=== PATIENT | male | born 1990 | race Caucasian/White ===

== ENCOUNTER 2017-08-14 06:46 | Emergency (ER) | payer SELFPAY ==
[2017-08-14 06:48] VITALS: TEMP 98.8
[2017-08-14 08:23] VITALS: BP 132/65; PULSE 85; RESP 18; O2SAT 98
[2017-08-14] MEDS ORDERED: PRED-503 PO (08:29)
[2017-08-14] MEDS ORDERED: RESP: ALBUTEROL 2.5 MG/IPRATROPIUM 0.5 MG NEB (SCH) INH ONE (08:30)
[2017-08-14] MEDS ORDERED: ALBUTEROL SULFATE 90 MCG/ACT HFA 8 GM INHALER INH PRN (08:30)
[2017-08-14] MEDS ORDERED: AZIT500T2 PO (08:30)
[2017-08-14] MEDS ORDERED: predniSONE 20 MG TAB PO ONE (08:30)
--- NOTE | 2017-08-14 08:30 | PD ---
HPI Chief Complaint: Cold / Flu Symptoms Time Seen by Provider: 08:19 Travel History International Travel<30 days: No Contact w/Intl Traveler<30days: No Traveled to known affect area: No History of Present Illness HPI 27-year-old male, with history of asthma, presents to the emergency Department with complaint of cough, nasal congestion, chest congestion, chest tightness, shortness of breath with worsening of symptoms 1 week. Patient is homeless and was brought in via EMS. Was seen at [facility] yesterday and said he had a chest x-ray done which he was told was okay. He said he was discharged with [facility] senior. Unknown fevers. Denies abdominal pain, vomiting. Denies sore throat, ear pain. Reports wheezing. Denies chest pain. Has been taking Delsym for symptom management. Symptoms are mild in severity. Symptoms are aggravated with walking. No known relieving factors. No known allergies. No primary care provider. History of asthma. Has not medical complaints. No other modifying factors or associated signs and symptoms. PFSH Past Medical History ADHD: Yes Asthma: Yes Bipolar Disorder: Yes Diminished Hearing: No Immunizations Current: Yes Influenza Vaccination: No Past Surgical History Surgical History: No Previous Surgery Social History Alcohol Use: Yes (OCCASIONALLY) Tobacco Use: Yes (1 ppd) Substance Use: Yes ( herion iv, occ. cocaine; DENIES ON THIS VISIT) Allergies-Medications (Allergen,Severity, Reaction): Coded Allergies: No Known Allergies (Verified Adverse Reaction, Unknown, 08/14/17) Reported Meds & Prescriptions Reported Meds & Active Scripts Active Azithromycin 500 Mg Tab 500 Mg PO DAILY Deltasone (Prednisone) 20 Mg Tab 20 Mg PO BID Review of Systems Except as stated in HPI: all other systems reviewed are Neg Physical Exam Narrative GENERAL: Well-nourished, well-developed male patient, in no acute distress; afebrile, nontoxic-appearing SKIN: Warm and dry. HEAD: Atraumatic. Normocephalic. EYES: Pupils equal and round. No scleral icterus. No injection or drainage. ENT: Mucosa pink and moist. No erythema or exudates. No uvular edema. No uvular , palatal, or tonsillar deviation. Airway patent. Nares without nasal blood, purulent drainage or septal hematoma. EARS: Bilateral pinnae and external canals appear within normal limits. Bilateral tympanic membranes without erythema, dullness or perforation. NECK: Trachea midline. No lymphadenopathy. CARDIOVASCULAR: Regular rate and rhythm. No murmur appreciated. RESPIRATORY: No accessory muscle use. Lungs with Wheezing throughout to auscultation. Breath sounds equal bilaterally. No retractions or tachypnea. No Audible wheezing noted. GASTROINTESTINAL: Flat. MUSCULOSKELETAL: No obvious deformities. No clubbing. No cyanosis. No edema. NEUROLOGICAL: Awake and alert. Oriented 3. No obvious cranial nerve deficits. Motor grossly within normal limits. Normal speech. Moves all extremities. 5/5 strength to all extremities. PSYCHIATRIC: Appropriate mood and affect; insight and judgment normal. Data Data Last Documented VS Vital Signs Date Time Temp Pulse Resp B/P (MAP) Pulse Ox O2 Delivery O2 Flow Rate FiO2 08/14/17 08:23 85 18 132/65 (87) 98 08/14/17 06:48 98.8 Orders Orders Influenzae A/B Antigen (08/14/17 07:03) Prednisone (Deltasone) (08/14/17 08:30) Albuterol-Ipratropium Neb (Duoneb Neb) (08/14/17 08:30) Albuterol Hfa Inh (Proair Hfa Inh) (08/14/17 08:30) MDM Medical Decision Making Medical Screen Exam Complete: Yes Emergency Medical Condition: Yes Medical Record Reviewed: Yes Differential Diagnosis Acute bronchitis, upper respiratory infection, influenza, pneumonia Narrative Course 27-year-old male physical examination consistent with asthma exacerbation and upper respiratory infection. Patient has been sick for approximately one week. Lungs with wheezing throughout. Patient is in no acute distress without retractions or tachypnea. Oxygen saturation is 98% on room air. He states he was seen at [facility] yesterday and had a chest x-ray which was normal, per the patient. DuoNeb and Deltasone ordered. 0847: On reexamination lungs are clear and equal throughout. The patient reports improvement in symptoms. He denies chest tightness or shortness of breath. Patient is homeless. I will provide the patient with an albuterol inhaler for home. Prescribed azithromycin, Deltasone for home. Instructed patient to follow up with primary care provider. Patient verbalizes understanding and agreement with treatment plan. Patient is medically cleared and stable for discharge. Discussed reasons to return to the emergency department. Patient agrees with treatment plan. The patients vital signs are stable and the patient is stable for outpatient follow-up and treatment. Patient discharged home, stable and in no acute distress. Diagnosis Primary Impression: URI (upper respiratory infection) Qualified Codes: J06.9 - Acute upper respiratory infection, unspecified Additional Impression: Asthma exacerbation Qualified Codes: J45.901 - Unspecified asthma with (acute) exacerbation Referrals: [facility] Primary Care Physician Patient Instructions: Acute Bronchitis (ED), Asthma (ED), General Instructions , Upper Respiratory Infection (ED) Additional Instructions: Use Albuterol inhaler as prescribed Take oral steroids as prescribed and complete full course Use Tessalon Perles as prescribed to decrease coughing spasms Dvke-uzv-butrocz decongestants or antihistamines as directed and as needed for symptom management Your cough can last 4-6 weeks Drink plenty of fluids to prevent dehydration Use hot air humidifier to decrease cough exacerbation Turn off ceiling fans and sleep with head of bed elevated Avoid triggers such as second hand smoke, dust, known allergens Follow-up with your primary care provider Return to the emergency department immediately with worsening of symptoms Med/Other Pt SpecificInfo: Prescription(s) given Scripts Azithromycin (Azithromycin) 500 Mg Tab 500 MG PO DAILY for Infection, #5 TAB 0 Refills Prov: Elsa Zuñiga 08/14/17 Prednisone (Deltasone) 20 Mg Tab 20 MG PO BID, #60 TAB 0 Refills Prov: Elsa Zuñiga 08/14/17 Disposition: 01 DISCHARGE HOME Condition: Stable Elsa Zuñiga Aug 14, 2017 08:30
[2017-08-14 09:10] VITALS: BP 130/65
== END 2017-08-14 09:37 | disposition home or self-care (01) ==
LOC: NEPD 06:46
DX: J06.9 Acute upper respiratory infection, unspecified (principal); J45.901 Unspecified asthma with (acute) exacerbation; F90.9 Attention-deficit hyperactivity disorder, unspecified type; F31.9 Bipolar disorder, unspecified; F17.200 Nicotine dependence, unspecified, uncomplicated; Z59.0 Homelessness
CPT/HCPCS: 87804; 94664; 99284; J7512

== ENCOUNTER 2017-08-26 18:10 | Inpatient (IN) | payer SELFPAY ==
[~2017-08-26] VITALS: Ht 182.9 cm; Wt 86.0 kg
[~2017-08-26 18:10] MED LIST: AZIT500T2 PO; PRED-503 PO
[2017-08-26 18:14] VITALS: BP 162/84; PULSE 92; RESP 24; TEMP 98.4; O2SAT 99
[2017-08-26] MEDS ORDERED: SODIUM CHLOR 0.9% 1000 ML INJ 1,000 ML IV SCH (20:01)
[2017-08-26 20:09] VITALS: RESP 20; O2SAT 100
[2017-08-26] MEDS ORDERED: SODIUM CHLORIDE 0.9% FLUSH 10 ML FLUSH IV FLUSH PRN ×2 (20:15→23:30)
[2017-08-26] MEDS ORDERED: KETOROLAC TROMETHAMINE 30 MG/ML (IVP) VIAL IVP ONE (20:15)
[2017-08-26 20:43] LABS: AUTOMATED NEUTROPHIL # 20.5 TH/MM3 (1.8-7.7); BASOPHIL % 0.2 % (0.0-2.0); EOSINOPHIL # 0.1 TH/MM3 (0-0.4); EOSINOPHIL % 0.3 % (0.0-4.0); HEMOGLOBIN 13.6 GM/DL (13.0-17.0); LYMPH % 2.3 % (9.0-44.0); LYMPHOCYTE # 0.5 TH/MM3 (1.0-4.8); MEAN CELL VOLUME 83.1 FL (80.0-100.0); MEAN CORPUSCULAR HEMOGLOBIN 28.2 PG (27.0-34.0); MEAN CORPUSCULAR HGB CONC 33.9 % (32.0-36.0); MEAN PLATELET VOLUME 8.4 FL (7.0-11.0); MONO % 0.5 % (0.0-8.0); MONOCYTE # 0.1 TH/MM3 (0-0.9); NEUT % 96.7 % (16.0-70.0); PLATELET COUNT 261 TH/MM3 (150-450); RED BLOOD COUNT 4.82 MIL/MM3 (4.50-5.90); RED CELL DISTRIBUTION WIDTH 13.3 % (11.6-17.2); WHITE BLOOD COUNT 21.2 TH/MM3 (4.0-11.0)
[2017-08-26 20:53] LABS: ALBUMIN 3.2 GM/DL (3.4-5.0); AST (GOT) 277 U/L (15-37); BICARBONATE 26.1 MEQ/L (21.0-32.0); BLOOD UREA NITROGEN 12 MG/DL (7-18); CALCIUM 8.6 MG/DL (8.5-10.1); CHLORIDE 101 MEQ/L (98-107); GLOMERULAR FILTRATION RATE 102 ML/MIN (>89); GLUCOSE,RANDOM 93 MG/DL (74-106); LIPASE 78 U/L (73-393); SODIUM (NA) 136 MEQ/L (136-145)
[2017-08-26 20:54] LABS: ALT (GPT) 163 U/L (12-78)
[2017-08-26 20:57] LABS: ALKALINE PHOSPHATASE 133 U/L (45-117); TOTAL BILIRUBIN ADULT 0.7 MG/DL (0.2-1.0); TOTAL PROTEIN 7.3 GM/DL (6.4-8.2)
[2017-08-26] MEDS ORDERED: IOHEXOL 350 MG/ML 10 ML VIAL (for RAD DIAG) IVCONTRAST ONE (21:36)
--- NOTE | 2017-08-26 21:57 | RADRPT ---
EXAM DATE/TIME: 08/26/2017 21:34 [place] COMPARISON: No previous studies available for comparison. INDICATIONS : Bilateral flank pain. IV CONTRAST: 100 cc Omnipaque 350 (iohexol) IV ORAL CONTRAST: No oral contrast ingested. RADIATION DOSE: 6.64 CTDIvol (mGy) MEDICAL HISTORY : Substance abuse. SURGICAL HISTORY : None. ENCOUNTER: Initial ACUITY: 1 day PAIN SCALE: 7/10 LOCATION: Bilateral flank TECHNIQUE: Volumetric scanning of the abdomen and pelvis was performed. Using automated exposure control and ad justment of the mA and/or kV according to patient size, radiation dose was kept as low as reasonably achievable to obtain optimal diagnostic quality images. DICOM format image data is available electro nically for review and comparison. FINDINGS: LOWER LUNGS: Mild patchy infiltrate in the visualized right middle and lower lobes LIVER: Enlarged at 24 cm craniocaudal. No focal hepatic lesion. There is no dilation of the biliary tree. S ome mild periportal edema is present, nonspecific but often seen in the setting of vigorous intraveno us hydration; underlying hepatocellular disease also in the differential. There is small pericholecys tic fluid, series 2 image 35, possibly on the same basis. I don't clearly see gallbladder wall thicke meche or inflammatory change. No perceptible stones. SPLEEN: Upper limits of normal size, 9.2 x 14.2 x 12.1 cm PANCREAS: Within normal limits. KIDNEYS: Normal in size and shape. There is no mass, stone or hydronephrosis. ADRENAL GLANDS: Within normal limits. VASCULAR: There is no aortic aneurysm. BOWEL/MESENTERY: The stomach, small bowel, and colon demonstrate no acute abnormality. There is no free intraperitone al air or fluid. Normal appendix. ABDOMINAL WALL: Small amount of fat herniated at the umbilicus. No bowel herniation. RETROPERITONEUM: There is no lymphadenopathy. BLADDER: No wall thickening or mass. REPRODUCTIVE: Within normal limits. INGUINAL: There is no lymphadenopathy or hernia. MUSCULOSKELETAL: Within normal limits for patient age. CONCLUSION: 1. No evidence of bilateral Wednesday as are other acute renal abnormality. 2. Hepatomegaly with periportal edema and also trace fluid around the gallbladder. Please see above. No perceptible inflammatory changes. 3. Upper limits of normal to mildly enlarged spleen, nonspecific. 4. Apparent patchy pneumonia in the visualized right base. 5. Small fat containing umbilical hernia. Yimi Harris MD on August 26, 2017 at 21:48 Board Certified Radiologist. This report was verified electronically.
[2017-08-26] MEDS ORDERED: VANCOMYCIN INJ 1,250 MG in SODIUM CHLOR 0.9% 250 ML INJ 250 ML IV ONE (22:15)
[2017-08-26] MEDS ORDERED: PIPERACIL-TAZO 4.5 GM PREMIX 100 ML IV ONE (22:15)
[2017-08-26] MEDS ORDERED: SODIUM CHLOR 0.9% 1000 ML INJ 1,000 ML IV ONE (22:47)
[2017-08-26] MEDS ORDERED: SODIUM CHLOR 0.9% 1000 ML INJ 800 ML IV ONE (22:47)
--- NOTE | 2017-08-26 23:06 | PD ---
HPI Chief Complaint: Headache Time Seen by Provider: 20:01 Travel History International Travel<30 days: No Contact w/Intl Traveler<30days: No Traveled to known affect area: No History of Present Illness HPI The patient is 27 years old and arrives to the ER with a complaint low back pain. Duration about 2 hours. He is currently an IV drug abuser, heroin. He states the pain is severe. He believes his "kidneys are exploding." He denies fever. The pain is constant. It's worse with palpation/percussion of the low back. PFSH Past Medical History ADHD: Yes Asthma: Yes Bipolar Disorder: Yes Diminished Hearing: No Immunizations Current: Yes Past Surgical History Surgical History: No Previous Surgery Social History Alcohol Use: Yes (OCCASIONALLY) Tobacco Use: Yes (1 ppd) Substance Use: Yes ( herion iv, occ. cocaine; DENIES ON THIS VISIT) Allergies-Medications (Allergen,Severity, Reaction): Coded Allergies: No Known Allergies (Verified Adverse Reaction, Unknown, 08/26/17) Reported Meds & Prescriptions Reported Meds & Active Scripts Active Azithromycin 500 Mg Tab 500 Mg PO DAILY Deltasone (Prednisone) 20 Mg Tab 20 Mg PO BID Review of Systems Except as stated in HPI: all other systems reviewed are Neg Physical Exam Narrative GENERAL: 27-year-old male well-nourished well-developed mild to moderate distress SKIN: Warm and dry. HEAD: Atraumatic. Normocephalic. EYES: Pupils equal and round. No scleral icterus. No injection or drainage. ENT: No nasal bleeding or discharge. Mucous membranes pink and moist. NECK: Trachea midline. No JVD. CARDIOVASCULAR: Regular rate and rhythm. RESPIRATORY: No accessory muscle use. Clear to auscultation. Breath sounds equal bilaterally. GASTROINTESTINAL: Soft. Tenderness to percussion lower back. No abdominal TTP. MUSCULOSKELETAL: Extremities without clubbing, cyanosis, or edema. No obvious deformities. NEUROLOGICAL: Awake and alert. No obvious cranial nerve deficits. Motor grossly within normal limits. Five out of 5 muscle strength in the arms and legs. Normal speech. PSYCHIATRIC: Appropriate mood and affect; insight and judgment normal. Data Data Last Documented VS Vital Signs Date Time Temp Pulse Resp B/P (MAP) Pulse Ox O2 Delivery O2 Flow Rate FiO2 08/26/17 20:09 20 100 Room Air 08/26/17 18:14 98.4 92 VS reviewed Orders Orders Complete Blood Count With Diff (08/26/17 20:01) Comprehensive Metabolic Panel (08/26/17 20:01) Lipase (08/26/17 20:01) Urinalysis - C+S If Indicated (08/26/17 20:01) Ct Abd/Pel W Iv Contrast(Rout) (08/26/17 20:01) Iv Access Insert/Monitor (08/26/17 20:01) Ecg Monitoring (08/26/17 20:01) Oximetry (08/26/17 20:01) Sodium Chlor 0.9% 1000 Ml Inj (Ns 1000 M (08/26/17 20:01) Sodium Chloride 0.9% Flush (Ns Flush) (08/26/17 20:15) Electrocardiogram (08/26/17 20:01) Ketorolac Inj (Toradol Inj) (08/26/17 20:15) Iohexol 350 Inj (Omnipaque 350 Inj) (08/26/17 21:36) Piperacil-Tazo 4.5 Gm Premix (Zosyn 4.5 (08/26/17 22:15) Vancomycin Inj (Vancomycin Inj) (08/26/17 22:15) Blood Culture (08/26/17 22:04) Admit Order (Ed Use Only) (08/26/17 ) Diet Counselor / Telemetry MARIEL.Q8H (08/26/17 22:47) Vital Signs (Adult) Q4H (08/26/17 22:47) Diet Npo (08/27/17 Breakfast) Activity Bed Rest (08/26/17 22:47) Lactic Acid Sepsis Protocol (08/26/17 22:47) Sodium Chlor 0.9% 1000 Ml Inj (Ns 1000 M (08/26/17 22:47) Sodium Chlor 0.9% 1000 Ml Inj (Ns 1000 M (08/26/17 22:47) Labs Laboratory Tests Test 08/26/17 20:20 White Blood Count 21.2 TH/MM3 Red Blood Count 4.82 MIL/MM3 Hemoglobin 13.6 GM/DL Hematocrit 40.0 % Mean Corpuscular Volume 83.1 FL Mean Corpuscular Hemoglobin 28.2 PG Mean Corpuscular Hemoglobin Concent 33.9 % Red Cell Distribution Width 13.3 % Platelet Count 261 TH/MM3 Mean Platelet Volume 8.4 FL Neutrophils (%) (Auto) 96.7 % Lymphocytes (%) (Auto) 2.3 % Monocytes (%) (Auto) 0.5 % Eosinophils (%) (Auto) 0.3 % Basophils (%) (Auto) 0.2 % Neutrophils # (Auto) 20.5 TH/MM3 Lymphocytes # (Auto) 0.5 TH/MM3 Monocytes # (Auto) 0.1 TH/MM3 Eosinophils # (Auto) 0.1 TH/MM3 Basophils # (Auto) 0.0 TH/MM3 CBC Comment DIFF FINAL Differential Comment Blood Urea Nitrogen 12 MG/DL Creatinine 0.90 MG/DL Random Glucose 93 MG/DL Total Protein 7.3 GM/DL Albumin 3.2 GM/DL Calcium Level 8.6 MG/DL Alkaline Phosphatase 133 U/L Aspartate Amino Transf (AST/SGOT) 277 U/L Alanine Aminotransferase (ALT/SGPT) 163 U/L Total Bilirubin 0.7 MG/DL Sodium Level 136 MEQ/L Potassium Level 3.3 MEQ/L Chloride Level 101 MEQ/L Carbon Dioxide Level 26.1 MEQ/L Anion Gap 9 MEQ/L Estimat Glomerular Filtration Rate 102 ML/MIN Lipase 78 U/L [facility] Medical Decision Making Medical Screen Exam Complete: Yes Emergency Medical Condition: Yes Medical Record Reviewed: Yes Differential Diagnosis Endocarditis, septic emboli, pyelonephritis Narrative Course CBC & BMP Diagram 08/26/17 20:20 Total Protein 7.3, Albumin 3.2 L, Calcium Level 8.6, Alkaline Phosphatase 133 H , Aspartate Amino Transf (AST/SGOT) 277 H, Alanine Aminotransferase (ALT/SGPT) 163 H, Total Bilirubin 0.7 Lipase is normal Last Impressions Abdomen/Pelvis CT 08/26/172000 Signed Impressions: Service Date/Time: August 21:34 - CONCLUSION: 1. No evidence of bilateral Wednesday as are other acute renal abnormality. 2. Hepatomegaly with periportal edema and also trace fluid around the gallbladder. Please see above. No perceptible inflammatory changes. 3. Upper limits of normal to mildly enlarged spleen, nonspecific. 4. Apparent patchy pneumonia in the visualized right base. 5. Small fat containing umbilical hernia. MD Armen Pizarro / Ruben started Blood cultures obtained Concern for endocarditis and her septic emboli Discussed with Dr. Matta for [facility] Sepsis Criteria SIRS Criteria (2 or more): Heart rate over 90, WBC > 21928, < 4000 or > 10% bands Sepsis Criteria (SIRS+source): Infect source susp/known Diagnosis Primary Impression: Septic embolism Admitting Information Admitting Physician Requests: Admit Jonah English MD Aug 26, 2017 23:06
[2017-08-26] MEDS ORDERED: POTASSIUM CHLORIDE 20 MEQ CONTROLLED RELEASE TAB PO ONE (23:30)
[2017-08-26] MEDS ORDERED: ONDANSETRON HCL 4 MG/2 ML VIAL IVP PRN (23:30)
[2017-08-26 23:40] LABS: LACTIC ACID SEPSIS PROTOCOL 2.2 mmol/L (0.4-2.0)
[2017-08-26] MEDS: SODIUM CHLOR 0.9% 1000 ML INJ 1,000 ML IV SCH (23:40)
[2017-08-27] VITALS (7 sets, daily range): BP systolic 120–142; BP diastolic 64–73; PULSE 61–77; RESP 15–18; TEMP 96.3–98.4; O2SAT 97–100
[2017-08-27] MEDS ORDERED: Vancomycin Consult Pharmacy 1 EA OTHER SCH (02:15)
[2017-08-27] MEDS ORDERED: RESP: ALBUTEROL 2.5 MG/IPRATROPIUM 0.5 MG NEB (PRN) NEB (02:30)
--- NOTE | 2017-08-27 02:37 | HHI.HP ---
[facility] Primary Care Physician Admission Diagnosis Septic Embolic vs R lung base pneumonia Diagnoses: Chief Complaint: Low back pain Travel History International Travel<30 Days: No Contact w/Intl Traveler <30 Da: No Traveled to Known Affected Are: No History of Present Illness 27 y/o male with a history of IV heroin drug abuse, asthma, and bipolar disorder presented to the ED for evaluation of severe low back pain. The patient reports that his "lungs were on fire" and he had "kidney pain". He states his symptoms started today and were accompanied by fever/chills. He denies sore throat, cough. Denies chest pain with the exception of "lung pain" on deep inspiration. Denies nausea/vomiting. Vital signs: Temperature 98.4, pulse 92, respirations 24, BP 162/84, pulse ox 99% on room air. . Review of Systems Except as stated in HPI: all other systems reviewed are Neg Positive pleuritic pain, fevers, chills, bilateral flank pain Past Family Social History Past Medical History IV heroin abuse Asthma Bipolar Disorder Tobacco Abuse . Past Surgical History None Reported Medications Reported Meds & Active Scripts Active Azithromycin 500 Mg Tab 500 Mg PO DAILY Deltasone (Prednisone) 20 Mg Tab 20 Mg PO BID Allergies: Coded Allergies: No Known Allergies (Verified Adverse Reaction, Unknown, 08/26/17) Family History Father with diabetes mellitus Social History Tobacco: smokes 1 PPD Alcohol: occasional Illicit Drugs: IV heroin abuse, last injection earlier today . Physical Exam Vital Signs Vital Signs Date Time Temp Pulse Resp B/P (MAP) Pulse Ox O2 Delivery O2 Flow Rate FiO2 08/26/17 20:09 20 100 Room Air 08/26/17 18:14 98.4 92 24 162/84 (110) 99 Physical Exam GENERAL: Thin male lying in bed. SKIN: No rashes, ecchymoses or lesions. Cool and dry. HEAD: Atraumatic. Normocephalic. No temporal or scalp tenderness. EYES: Pupils equal round and reactive. Extraocular motions intact. No scleral icterus. No injection or drainage. ENT: Nose without bleeding, purulent drainage or septal hematoma. Throat without erythema, tonsillar hypertrophy or exudate. Uvula midline. Airway patent. NECK: Trachea midline. No JVD or lymphadenopathy. Supple, nontender, no meningeal signs. CARDIOVASCULAR: Regular rate and rhythm without murmurs, gallops, or rubs. RESPIRATORY: Clear to auscultation. Breath sounds equal bilaterally. No wheezes , rales, or rhonchi. GASTROINTESTINAL: Abdomen soft, non-tender, nondistended. No hepato-splenomegaly , or palpable masses. No guarding. MUSCULOSKELETAL: Extremities without clubbing, cyanosis, or edema. No joint tenderness, effusion, or edema noted. No calf tenderness. NEUROLOGICAL: Awake and alert. Cranial nerves II through XII intact. Motor and sensory grossly within normal limits. Normal speech. Laboratory Laboratory Tests Test 08/26/17 20:20 08/26/17 23:05 White Blood Count 21.2 Red Blood Count 4.82 Hemoglobin 13.6 Hematocrit 40.0 Mean Corpuscular Volume 83.1 Mean Corpuscular Hemoglobin 28.2 Mean Corpuscular Hemoglobin Concent 33.9 Red Cell Distribution Width 13.3 Platelet Count 261 Mean Platelet Volume 8.4 Neutrophils (%) (Auto) 96.7 Lymphocytes (%) (Auto) 2.3 Monocytes (%) (Auto) 0.5 Eosinophils (%) (Auto) 0.3 Basophils (%) (Auto) 0.2 Neutrophils # (Auto) 20.5 Lymphocytes # (Auto) 0.5 Monocytes # (Auto) 0.1 Eosinophils # (Auto) 0.1 Basophils # (Auto) 0.0 CBC Comment DIFF FINAL Differential Comment Blood Urea Nitrogen 12 Creatinine 0.90 Random Glucose 93 Total Protein 7.3 Albumin 3.2 Calcium Level 8.6 Alkaline Phosphatase 133 Aspartate Amino Transf (AST/SGOT) 277 Alanine Aminotransferase (ALT/SGPT) 163 Total Bilirubin 0.7 Sodium Level 136 Potassium Level 3.3 Chloride Level 101 Carbon Dioxide Level 26.1 Anion Gap 9 Estimat Glomerular Filtration Rate 102 Lipase 78 Lactic Acid Level 2.2 Date/Time Source Procedure Growth Status 08/26/17 22:20 Blood Peripheral Aerobic Blood Culture Pending Received 08/26/17 22:20 Blood Peripheral Anaerobic Blood Culture Pending Received Result Diagram: 08/26/17201908/26/172019 Imaging Last Impressions Abdomen/Pelvis CT 08/26/172000 Signed Impressions: Service Date/Time: August 21:34 - CONCLUSION: 1. No evidence of bilateral Wednesday as are other acute renal abnormality. 2. Hepatomegaly with periportal edema and also trace fluid around the gallbladder. Please see above. No perceptible inflammatory changes. 3. Upper limits of normal to mildly enlarged spleen, nonspecific. 4. Apparent patchy pneumonia in the visualized right base. 5. Small fat containing umbilical hernia. MD Peyman Pizarro VTE Risk Assessment Caprini VTE Risk Assessment: No/Low Risk (score <= 1) Caprini Risk Assessment Model Point Value = 1 Point Value = 2 Point Value = 3 Point Value = 5 Age 41-60 Minor surgery BMI > 25 kg/m2 Swollen legs Varicose veins or History of unexplained or recurrent spontaneous Oral contraceptives or hormone replacement Sepsis (< 1 month) Serious lung disease, including pneumonia (< 1 month) Abnormal pulmonary function Acute myocardial infarction Congestive heart failure (< 1 month) History of inflammatory bowel disease Medical patient at bed rest Age 61-74 Arthroscopic surgery Major open surgery (> 45 min) Laparoscopic surgery (> 45 min) Malignancy Confined to bed (> 72 hours) Immobilizing plaster cast Central venous access Age >= 75 History of VTE Family history of VTE Factor V Leiden Prothrombin [id number] Lupus anticoagulant Anticardiolipin antibodies Elevated serum homocysteine Heparin-induced thrombocytopenia Other congenital or acquired thrombophilia Stroke (< 1 month) Elective arthroplasty Hip, pelvis, or leg fracture Acute spinal cord injury (< 1 month) Prophylaxis Regimen Total Risk Factor Score Risk Level Prophylaxis Regimen 0-1 Low Early ambulation 2 Moderate Order ONE of the following: *Sequential Compression Device (SCD) *Heparin 5000 units SQ BID 3-4 Higher Order ONE of the following medications: *Heparin 5000 units SQ TID *Enoxaparin/Lovenox 40 mg SQ daily (WT < 150 kg, CrCl > 30 mL/min) *Enoxaparin/Lovenox 30 mg SQ daily (WT < 150 kg, CrCl > 10-29 mL/min) *Enoxaparin/Lovenox 30 mg SQ BID (WT < 150 kg, CrCl > 30 mL/min) AND/OR *Sequential Compression Device (SCD) 5 or more Highest Order ONE of the following medications: *Heparin 5000 units SQ TID (Preferred with Epidurals) *Enoxaparin/Lovenox 40 mg SQ daily (WT < 150 kg, CrCl > 30 mL/min) *Enoxaparin/Lovenox 30 mg SQ daily (WT < 150 kg, CrCl > 10-29 mL/min) *Enoxaparin/Lovenox 30 mg SQ BID (WT < 150 kg, CrCl > 30 mL/min) AND *Sequential Compression Device (SCD) Assessment and Plan Assessment and Plan 27 y/o male with a history of IV heroin drug abuse, asthma, and bipolar disorder presented to the ED for evaluation of severe low back pain. Right lung base patchy pneumonia vs septic emboli - WBC 21.2 with left shift, lactic acid 2.2 - repeat labs and follow results - IV Vancomycin and Zosyn - Check echocardiogram - Duonebs - Telemetry Transaminitis - Abdomen/Pelvis CT shows hepatomegaly with periportal edema and trace fluid around gallbladder - check gallbladder ultrasound - check hepatitis profile IV heroin abuse and tobacco abuse - advised cessation FEN - NS at 100 cc/hr - Potassium 3.3 - replaced - monitor labs - Regular diet - early ambulation . Discussed Condition With ER physician and patient Physician Certification 2 Midnight Certification Type: Admission for Inpatient Services Order for Inpatient Services The services are ordered in accordance with Medicare regulations or non- Medicare payer requirements, as applicable. In the case of services not specified as inpatient-only, they are appropriately provided as inpatient services in accordance with the 2-midnight benchmark. Estimated LOS (days): 4 4 days is the estimated time the patient will need to remain in the hospital, assuming treatment plan goals are met and no additional complications. Post-Hospital Plan: Home Radha Matta MD Aug 27, 2017 02:37
[2017-08-27] MEDS: PIPERACIL-TAZO 4.5 GM PREMIX 100 ML IV SCH ×4 (06:13→23:18)
[2017-08-27 07:21] LABS: AUTOMATED NEUTROPHIL # 28.9 TH/MM3 (1.8-7.7); BASOPHIL % 0.1 % (0.0-2.0); EOSINOPHIL # 0.1 TH/MM3 (0-0.4); EOSINOPHIL % 0.4 % (0.0-4.0); HEMATOCRIT 37.5 % (39.0-51.0); HEMOGLOBIN 12.7 GM/DL (13.0-17.0); LYMPH % 5.8 % (9.0-44.0); LYMPHOCYTE # 1.9 TH/MM3 (1.0-4.8); MEAN CELL VOLUME 84.3 FL (80.0-100.0); MEAN CORPUSCULAR HEMOGLOBIN 28.6 PG (27.0-34.0); MEAN CORPUSCULAR HGB CONC 33.9 % (32.0-36.0); MEAN PLATELET VOLUME 8.9 FL (7.0-11.0); MONO % 2.7 % (0.0-8.0); MONOCYTE # 0.8 TH/MM3 (0-0.9); PLATELET COUNT 235 TH/MM3 (150-450); RED BLOOD COUNT 4.45 MIL/MM3 (4.50-5.90); RED CELL DISTRIBUTION WIDTH 13.5 % (11.6-17.2); WHITE BLOOD COUNT 31.7 TH/MM3 (4.0-11.0)
[2017-08-27 07:37] LABS: ALBUMIN 2.7 GM/DL (3.4-5.0); ALKALINE PHOSPHATASE 100 U/L (45-117); ALT (GPT) 150 U/L (12-78); AST (GOT) 120 U/L (15-37); BICARBONATE 25.2 MEQ/L (21.0-32.0); BLOOD UREA NITROGEN 9 MG/DL (7-18); CALCIUM 7.7 MG/DL (8.5-10.1); CHLORIDE 108 MEQ/L (98-107); CREATININE 0.73 MG/DL (0.60-1.30); GLOMERULAR FILTRATION RATE 130 ML/MIN (>89); GLUCOSE,RANDOM 73 MG/DL (74-106); SODIUM (NA) 141 MEQ/L (136-145); TOTAL BILIRUBIN ADULT 0.6 MG/DL (0.2-1.0); TOTAL PROTEIN 6.5 GM/DL (6.4-8.2)
[2017-08-27] MEDS: SODIUM CHLORIDE 0.9% FLUSH 10 ML FLUSH IV FLUSH SCH ×2 (07:50→21:00)
[2017-08-27] MEDS ORDERED: VANCOMYCIN INJ 1,250 MG in SODIUM CHLOR 0.9% 250 ML INJ 250 ML IV ONE (08:00)
[2017-08-27 08:34] LABS: BANDS 33 % (0-6); LYMPHOCYTES 5 % (9-44); MONOCYTES 1 % (0-8); NEUTROPHIL # MANUAL DIFF 29.8 TH/MM3 (1.8-7.7); POLYS (SEG NEUTROPHILS) 61 % (16-70)
[2017-08-27 08:35] LABS: TOXIC VACUOLATION PRESENT (NONE SEEN)
--- NOTE | 2017-08-27 08:57 | EKG ---
Date Performed: 08/26/2017 Time Performed: 20:24:30 PTAGE: 27 years EKG: Sinus rhythm POSSIBLE PROLONGED QT AND/OR TU FUSION ABNORMAL ECG NO PREVIOUS TRACING DOCTOR: Jaret Allen Interpretating Date/Time 08/27/2017 08:55:23
[2017-08-27] MEDS: SODIUM CHLOR 0.9% 1000 ML INJ 1,000 ML IV SCH ×3 (09:24→23:55)
[2017-08-27] MEDS: ACETAMINOPHEN 325 MG TAB PO PRN ×2 (09:25→13:48)
--- NOTE | 2017-08-27 09:49 | RADRPT ---
EXAM DATE/TIME: 08/27/2017 07:56 [facility] COMPARISON: CT ABDOMEN & PELVIS W CONTRAST, August 26, 2017, 21:34. INDICATIONS : Right upper quadrant pain. MEDICAL HISTORY : Asthma. ADHD. Bipolar disorder. IV drug use. Tobacco use. SURGICAL HISTORY : None. ENCOUNTER: Initial ACUITY: 1 day PAIN SCORE: 3/10 LOCATION: Right upper quadrant MEASUREMENTS: LIVER: 18.1 cm length COMMON DUCT: 4 mm RIGHT KIDNEY: 13.4 x 6.0 x 5.7 cm FINDINGS: LIVER: Normal echotexture without focal lesion or ductal dilatation. Hepatopedal flow within the portal vein . No engorgement of the hepatic veins. COMMON DUCT: No intraluminal mass or stone visualized. GALLBLADDER: The gallbladder is not distended. The wall measures 6 mm which is out of the range of normal even for the degree of distention. There is small volume pericholecystic fluid. No stones or sludge. PANCREAS: The visualized portions are within normal limits. RIGHT KIDNEY: No evidence of hydronephrosis, stone, or mass. CONCLUSION: 1. The gallbladder wall is thickened and there is small volume pericholecystic fluid but no stones, s ludge, or distention of the gallbladder. The wall thickening and pericholecystic fluid can relate to venous congestion as seen with aggressive crystalloid therapy, right-sided heart failure, and hepatoc ellular disease. I cannot completely exclude acalculous cholecystitis. Alireza Greco Jr., MD on August 27, 2017 at 9:40 Board Certified Radiologist. This report was verified electronically.
[2017-08-27 10:57] LABS: BACTERIA, URINE RARE /hpf; BILIRUBIN, URINE NEG (NEG); BLOOD, URINE NEG (NEG); GLUCOSE,URINE NEG (NEG); KETONE, URINE NEG (NEG); NITRITE,URINE NEG (NEG); SQUAMOUS EPITHELIAL CELL URINE <1 /hpf (0-5); URINE COLOR YELLOW (YELLW/STRAW); URINE LEUKOCYTE ESTERASE NEG (NEG)
[2017-08-27 12:32] LABS: INTERNATIONAL NORMALIZED RATIO 1.2 RATIO
[2017-08-27 12:35] LABS: D-DIMER 11.37 MG/L FEU (0.00-0.50)
[2017-08-27 13:01] LABS: HEPATITIS A AB IGM NEGATIVE (NEGATIVE); HEPATITIS B CORE AB IGM NEGATIVE (NEGATIVE); HEPATITIS B SURFACE ANTIGEN NEGATIVE (NEGATIVE); HEPATITIS C AB IgG REACTIVE (NEGATIVE)
[2017-08-27] MEDS ORDERED: ACETAMINOPHEN/HYDROcodone 325 MG/5 MG TAB PO PRN (14:30)
[2017-08-27] MEDS ORDERED: NALOXONE HCL 0.4 MG/ML AMP IV PUSH PRN (14:30)
[2017-08-27] MEDS: VANCOMYCIN INJ 1,250 MG in SODIUM CHLOR 0.9% 250 ML INJ 250 ML IV SCH ×2 (15:14→23:54)
[2017-08-27] MEDS: ACETAMINOPHEN/HYDROcodone 325 MG/7.5 MG TAB PO PRN ×2 (15:15→21:13)
--- NOTE | 2017-08-27 15:19 | PD.CONS ---
HPI History of Present Illness This is a 27 year old male who came into the hospital on 08/26/17 with symptoms of low back pain accompanied with fever chills and lung pain. Patient is currently being treated with IV vancomycin and Zosyn. He also notes some right upper quadrant abdominal pain, nausea and vomiting chest continued over the past 24 hours, chronic constipation patient states probably due to his IV heroin usage. Current ultrasound of the gallbladder showed some gallbladder wall thickening, but no stones or sludge or distention. Acalculous cholecystitis could not be excluded. Patient shows hep C reactive antibody present. He is discussing in detail his IV heroin addiction which is been for the past 7-8 years sharing needles with multiple people. He states that his sister had hepatitis C 10 years ago diagnosed and that he may have gotten infected from her. He admits to a half a gram of heroin per day IV, but doesn' t have any money for any type of treatment regimen including hepatitis C treatment. Also complains of low back pain but has been told in the past that his kidneys haven't been affected from his IV heroin use. Currently patient has no dysphasia. (Nancy Pierre) PFSH Past Medical History IV heroin abuse daily half a gram for the last 7-8 years. Does admit to sharing needles. Asthma Bipolar Disorder Tobacco Abuse Possible history of some kidney disease according to patient . Past Surgical History None (Nancy Pierre) Coded Allergies: No Known Allergies (Verified Adverse Reaction, Unknown, 08/26/17) Medications Administered Medications Medications (Trade) Dose Ordered Sig/Isiah Route PRN Reason Start Time Stop Time Status Last Admin Dose Admin Sodium Chloride 1,000 ml @ 100 mls/hr Q10H IV 08/26/17 23:24 08/27/17 13:48 Acetaminophen (Tylenol) 650 mg Q4H PRN PO TEMP > 100.4 08/26/17 23:30 08/27/17 13:48 Piperacillin Sod/ Tazobactam Sod 100 ml @ 200 mls/hr Q6H IV 08/27/17 05:00 08/27/17 10:54 Vancomycin HCl 1250 mg/Sodium Chloride 262.5 ml @ 250 mls/hr Q8H IV 08/27/17 16:00 08/27/17 15:14 Acetaminophen/ Hydrocodone Bitart ([place] 7.5-325 Mg) 1 tab Q4H PRN PO PAIN SCALE 6 TO 10 08/27/17 14:30 08/27/17 15:15 Family History Father with diabetes mellitus Social History Tobacco: smokes 1 PPD Alcohol: Denies Illicit Drugs: IV heroin abuse, last injection earlier today, notes 7-8 years of usage, has a sister who also uses. Patient does not work . (Nancy Pierre) Review of Systems Gastrointestinal: COMPLAINS OF: Abdominal pain (right upper quadrant), Nausea, Vomiting Musculoskeletal: COMPLAINS OF: Back pain (lower and headache) (Nancy Pierre) GI Exam Vitals I&O Vital Signs Date Time Temp Pulse Resp B/P (MAP) Pulse Ox O2 Delivery O2 Flow Rate FiO2 08/27/17 13:54 96.3 73 18 142/72 (95) 100 08/27/17 13:28 08/27/17 13:18 68 16 135/73 (93) 98 Room Air 08/27/17 10:38 98.0 65 15 120/64 (82) 98 Room Air 08/27/17 10:35 16 08/27/17 07:33 98.4 61 17 130/67 (88) 100 Room Air 08/26/17 20:09 20 100 Room Air 08/26/17 18:14 98.4 92 24 162/84 (110) 99 I/O 08/26/17 08/26/17 08/26/17 08/27/17 08/27/17 08/27/17 07:00 15:00 23:00 07:00 15:00 23:00 Intake Total 3625.0 ml Balance 3625.0 ml Intake IV Total 3625.0 ml # Voids 1 Imaging Last Impressions Gall Bladder Ultrasound 08/27/17 0000 Signed Impressions: Service Date/Time: Sunday, August 27, 2017 07:56 - CONCLUSION: 1. The gallbladder wall is thickened and there is small volume pericholecystic fluid but no stones, sludge, or distention of the gallbladder. The wall thickening and pericholecystic fluid can relate to venous congestion as seen with aggressive crystalloid therapy, right-sided heart failure, and hepatocellular disease. I cannot completely exclude acalculous cholecystitis. Alireza Greco Jr., MD Abdomen/Pelvis CT 08/26/172000 Signed Impressions: Service Date/Time: August 21:34 - CONCLUSION: 1. No evidence of bilateral Wednesday as are other acute renal abnormality. 2. Hepatomegaly with periportal edema and also trace fluid around the gallbladder. Please see above. No perceptible inflammatory changes. 3. Upper limits of normal to mildly enlarged spleen, nonspecific. 4. Apparent patchy pneumonia in the visualized right base. 5. Small fat containing umbilical hernia. Yimi Harris MD Laboratory Test 08/26/17 20:20 08/26/17 23:05 08/27/17 04:20 08/27/17 06:11 White Blood Count 21.2 TH/MM3 31.7 TH/MM3 Red Blood Count 4.82 MIL/MM3 4.45 MIL/MM3 Hemoglobin 13.6 GM/DL 12.7 GM/DL Hematocrit 40.0 % 37.5 % Mean Corpuscular Volume 83.1 FL 84.3 FL Mean Corpuscular Hemoglobin 28.2 PG 28.6 PG Mean Corpuscular Hemoglobin Concent 33.9 % 33.9 % Red Cell Distribution Width 13.3 % 13.5 % Platelet Count 261 TH/MM3 235 TH/MM3 Mean Platelet Volume 8.4 FL 8.9 FL Neutrophils (%) (Auto) 96.7 % 91.0 % Lymphocytes (%) (Auto) 2.3 % 5.8 % Monocytes (%) (Auto) 0.5 % 2.7 % Eosinophils (%) (Auto) 0.3 % 0.4 % Basophils (%) (Auto) 0.2 % 0.1 % Neutrophils # (Auto) 20.5 TH/MM3 28.9 TH/MM3 Lymphocytes # (Auto) 0.5 TH/MM3 1.9 TH/MM3 Monocytes # (Auto) 0.1 TH/MM3 0.8 TH/MM3 Eosinophils # (Auto) 0.1 TH/MM3 0.1 TH/MM3 Basophils # (Auto) 0.0 TH/MM3 0.0 TH/MM3 CBC Comment DIFF FINAL AUTO DIFF Differential Comment FINAL DIFF MANUAL Blood Urea Nitrogen 12 MG/DL 9 MG/DL Creatinine 0.90 MG/DL 0.73 MG/DL Random Glucose 93 MG/DL 73 MG/DL Total Protein 7.3 GM/DL 6.5 GM/DL Albumin 3.2 GM/DL 2.7 GM/DL Calcium Level 8.6 MG/DL 7.7 MG/DL Alkaline Phosphatase 133 U/L 100 U/L Aspartate Amino Transf (AST/SGOT) 277 U/L 120 U/L Alanine Aminotransferase (ALT/SGPT) 163 U/L 150 U/L Total Bilirubin 0.7 MG/DL 0.6 MG/DL Sodium Level 136 MEQ/L 141 MEQ/L Potassium Level 3.3 MEQ/L 3.5 MEQ/L Chloride Level 101 MEQ/L 108 MEQ/L Carbon Dioxide Level 26.1 MEQ/L 25.2 MEQ/L Anion Gap 9 MEQ/L 8 MEQ/L Estimat Glomerular Filtration Rate 102 ML/MIN 130 ML/MIN Lipase 78 U/L Lactic Acid Level 2.2 mmol/L 1.1 mmol/L Differential Total Cells Counted 100 Neutrophils % (Manual) 61 % Band Neutrophils % 33 % Lymphocytes % 5 % Monocytes % 1 % Neutrophils # (Manual) 29.8 TH/MM3 Toxic Vacuolation PRESENT Platelet Estimate NORMAL Platelet Morphology Comment NORMAL Red Cell Morphology Comment NORMAL B-Type Natriuretic Peptide 59 PG/ML Hepatitis A IgM Antibody NEGATIVE Hepatitis B Surface Antigen NEGATIVE Hepatitis B Core IgM Antibody NEGATIVE Hepatitis C Antibody REACTIVE Test 08/27/17 10:22 08/27/17 11:46 Urine Color YELLOW Urine Turbidity CLEAR Urine pH 7.0 Urine Specific [place] 1.008 Urine Protein NEG mg/dL Urine Glucose (UA) NEG mg/dL Urine Ketones NEG mg/dL Urine Occult Blood NEG Urine Nitrite NEG Urine Bilirubin NEG Urine Urobilinogen LESS THAN 2.0 MG/DL Urine Leukocyte Esterase NEG Urine RBC LESS THAN 1 /hpf Urine WBC 1 /hpf Urine Squamous Epithelial Cells <1 /hpf Urine Bacteria RARE /hpf Microscopic Urinalysis Comment CULT NOT INDICATED Prothrombin Time 12.0 SEC Prothromb Time International Ratio 1.2 RATIO D-Dimer Quantitative (PE/DVT) 11.37 MG/L FEU Date/Time Source Procedure Growth Status 08/26/17 22:20 Blood Peripheral Aerobic Blood Culture - Preliminary NO GROWTH IN 1 DAY Resulted 08/26/17 22:20 Blood Peripheral Anaerobic Blood Culture - Preliminary NO GROWTH IN 1 DAY Resulted 08/27/17 09:20 Nasal Washing Influenza Types A,B Antigen (CLAUDINE) - Final NEGATIVE FOR FLU A AND B ANTIGEN.... Complete Physical Examination HEENT: Pupils round and reactive to light; normocephalic; atraumatic; no jaundice. Oral cavity dry but clean NECK: Neck is supple, CHEST: Chest bleed diminished CARDIAC: Regular rate and rhythm ABDOMEN: Soft, nondistended, tender right upper quadrant with light palpation and movement no hepatosplenomegaly; bowel sounds to all 4 quadrants EXTREMITIES: No clubbing, cyanosis, or edema. SKIN: Dry; no rash; no jaundice., Dry blood noted on his hands SOFTWARE SUPPORT ANALYST: Mild anxiety, alert and oriented times three. (Nancy Pierre) Assessment and Plan Plan Right upper quadrant pain hepatitis C positive with IV drug use positive , Possible cholecystitis, gallbladder ultrasound done on 08/27/17 showed gallbladder wall thickening, but no stones and no sludge no distention. This could possibly be due to venous congestion; or cholecystitis. Ultrasound cannot exclude acalculous cholelithiasis. Doubt gallbladder disease patient is positive for hep C and IV drug use. Leukocytosis increase to 31.7, currently patient's been managed on vancomycin and Zosyn Anemia hemoglobin stable at 12.7 Hepatitis C reactive, admits to daily IV heroin use for the past 7-8 years shares, needles. Doesn't feel like he can get any treatment because he doesn't have any money to pay for it. Patient states he was not aware of his hepatitis C reactive but his sister was reactive 10 years ago and states he probably got it from her. Transaminitis current LFTs ALT 120 AST 150 Plan Diet as tolerated Ultrasound of the liver Labs alpha 1 antitrypsin Smooth muscle total auto labs ANAs screen Hepatitis C RNA genotype AFP Iron, ferritin, TIBC Mitochondrial total auto labs Ceruloplasmin This patient was seen by myself and Dr. Azar, this note was done on his behalf (Nancy Pierre) Plan Agree with above note, we will obtain ultrasound and will do liver workup to evaluate the liver function test abnormality but most likely hepatitis C related (Antony Azar MD) Nancy Pierre Aug 27, 2017 15:19 Antony Azar MD Aug 27, 2017 17:44
--- NOTE | 2017-08-27 16:38 | PD.ID.CON ---
History of Present Illness Service =ID Consult Requested By Dr Renee Reason for Consult Infection of unknown source Primary Care Physician No Primary Care Physician Diagnoses: History of Present Illness 27 yo male with active IVDU (last time on adm day) presented witn 1 day od severe lower back pain, fever, chills He also has some intermittent RUQ pain with nausea Has h/o Hep C He denies any limping or problem walking , no weakness or numbness in BLE He had CT abd/pel done with soome gall bladder wall thickening noted, and US showed ? acalculous cholecystitis. He has WBC of 31K with 33% bandemia Blood clx negative @ 1 day Unremarkable UA Seen by surgeon Dr Jackson TOBIN ordered Review of Systems Constitutional: COMPLAINS OF: Fever, Chills Gastrointestinal: COMPLAINS OF: Abdominal pain, Nausea Musculoskeletal: COMPLAINS OF: Back pain Except as stated in HPI: all other systems reviewed are Neg Past Family Social History Allergies: Coded Allergies: No Known Allergies (Verified Adverse Reaction, Unknown, 08/26/17) Past Medical History IV heroin abuse Asthma Bipolar Disorder Tobacco Abuse . Past Surgical History None Active Ordered Medications Medications where reviewed in EMR Antibiotics Include: vancomycin zosyn Family History Father with diabetes mellitus Social History Tobacco: smokes 1 PPD Alcohol: occasional Illicit Drugs: IV heroin abuse, last injection earlier today Physical Exam Vital Signs Vital Signs Date Time Temp Pulse Resp B/P (MAP) Pulse Ox O2 Delivery O2 Flow Rate FiO2 08/27/17 13:54 96.3 73 18 142/72 (95) 100 08/27/17 13:28 08/27/17 13:18 68 16 135/73 (93) 98 Room Air 08/27/17 10:38 98.0 65 15 120/64 (82) 98 Room Air 08/27/17 10:35 16 08/27/17 07:33 98.4 61 17 130/67 (88) 100 Room Air 08/26/17 20:09 20 100 Room Air 08/26/17 18:14 98.4 92 24 162/84 (110) 99 Physical Exam CONSTITUTIONAL/GENERAL: This is an adequately nourished patient, in no apparent distress. TUBES/LINES/DRAINS: SKIN: No jaundice, rashes, or lesions. + B/L a/c areas niddle arboleda. Skin temperature appropriate. Not diaphoretic. HEAD: Atraumatic. Normocephalic. EYES: Pupils equal and round and reactive. Extraocular motions intact. No scleral icterus. No injection or drainage. Fundi not examined. ENT: Hearing grossly normal. Nose without bleeding or purulent drainage. Throat without visible erythema, exudates, masses, or lesions. NECK: Trachea midline. Supple, nontender. CARDIOVASCULAR: Regular rate and rhythm without murmurs, gallops, or rubs. No JVD. Peripheral pulses symmetric. RESPIRATORY/CHEST: Symmetric, unlabored respirations. Clear to auscultation. Breath sounds equal bilaterally. No wheezes, rales, or rhonchi. GASTROINTESTINAL: Abdomen soft, non-tender, nondistended. No hepato-splenomegaly , or palpable masses. No guarding. Bowel sounds present. GENITOURINARY: Without palpable bladder distension. MUSCULOSKELETAL: Extremities without clubbing, cyanosis, or edema. No joint tenderness or effusion noted. No calf tenderness. No mottling or clubbing. BACK: no deformities. + ltender to paklpation in lower back area over spine and paraspinal areas LYMPHATICS: No palpable cervical or supraclavicular adenopathy. NEUROLOGICAL: Awake and alert. Motor and sensory grossly within normal limits. Follows commands. Clear speech . Moves all extremities. PSYCHIATRIC: No obvious anxiety/depression. no apparent hallucinations or other psychotic thought process. Laboratory Laboratory Tests Test 08/26/17 20:20 08/26/17 23:05 08/27/17 04:20 08/27/17 06:11 White Blood Count 21.2 31.7 Red Blood Count 4.82 4.45 Hemoglobin 13.6 12.7 Hematocrit 40.0 37.5 Mean Corpuscular Volume 83.1 84.3 Mean Corpuscular Hemoglobin 28.2 28.6 Mean Corpuscular Hemoglobin Concent 33.9 33.9 Red Cell Distribution Width 13.3 13.5 Platelet Count 261 235 Mean Platelet Volume 8.4 8.9 Neutrophils (%) (Auto) 96.7 91.0 Lymphocytes (%) (Auto) 2.3 5.8 Monocytes (%) (Auto) 0.5 2.7 Eosinophils (%) (Auto) 0.3 0.4 Basophils (%) (Auto) 0.2 0.1 Neutrophils # (Auto) 20.5 28.9 Lymphocytes # (Auto) 0.5 1.9 Monocytes # (Auto) 0.1 0.8 Eosinophils # (Auto) 0.1 0.1 Basophils # (Auto) 0.0 0.0 CBC Comment DIFF FINAL AUTO DIFF Differential Comment FINAL DIFF MANUAL Blood Urea Nitrogen 12 9 Creatinine 0.90 0.73 Random Glucose 93 73 Total Protein 7.3 6.5 Albumin 3.2 2.7 Calcium Level 8.6 7.7 Alkaline Phosphatase 133 100 Aspartate Amino Transf (AST/SGOT) 277 120 Alanine Aminotransferase (ALT/SGPT) 163 150 Total Bilirubin 0.7 0.6 Sodium Level 136 141 Potassium Level 3.3 3.5 Chloride Level 101 108 Carbon Dioxide Level 26.1 25.2 Anion Gap 9 8 Estimat Glomerular Filtration Rate 102 130 Lipase 78 Lactic Acid Level 2.2 1.1 Differential Total Cells Counted 100 Neutrophils % (Manual) 61 Band Neutrophils % 33 Lymphocytes % 5 Monocytes % 1 Neutrophils # (Manual) 29.8 Toxic Vacuolation PRESENT Platelet Estimate NORMAL Platelet Morphology Comment NORMAL Red Cell Morphology Comment NORMAL Total Creatine Kinase 135 B-Type Natriuretic Peptide 59 Hepatitis A IgM Antibody NEGATIVE Hepatitis B Surface Antigen NEGATIVE Hepatitis B Core IgM Antibody NEGATIVE Hepatitis C Antibody REACTIVE Test 08/27/17 10:22 08/27/17 11:46 Urine Color YELLOW Urine Turbidity CLEAR Urine pH 7.0 Urine Specific [place] 1.008 Urine Protein NEG Urine Glucose (UA) NEG Urine Ketones NEG Urine Occult Blood NEG Urine Nitrite NEG Urine Bilirubin NEG Urine Urobilinogen LESS THAN 2.0 Urine Leukocyte Esterase NEG Urine RBC LESS THAN 1 Urine WBC 1 Urine Squamous Epithelial Cells <1 Urine Bacteria RARE Microscopic Urinalysis Comment CULT NOT INDICATED Prothrombin Time 12.0 Prothromb Time International Ratio 1.2 D-Dimer Quantitative (PE/DVT) 11.37 Date/Time Source Procedure Growth Status 08/26/17 22:20 Blood Peripheral Aerobic Blood Culture - Preliminary NO GROWTH IN 1 DAY Resulted 08/26/17 22:20 Blood Peripheral Anaerobic Blood Culture - Preliminary NO GROWTH IN 1 DAY Resulted 08/27/17 09:20 Nasal Washing Influenza Types A,B Antigen (CLAUDINE) - Final NEGATIVE FOR FLU A AND B ANTIGEN.... Complete Result Diagram: 08/27/17 0611 08/27/17 0611 Imaging Last Impressions Gall Bladder Ultrasound 08/27/17 0000 Signed Impressions: Service Date/Time: Sunday, August 27, 2017 07:56 - CONCLUSION: 1. The gallbladder wall is thickened and there is small volume pericholecystic fluid but no stones, sludge, or distention of the gallbladder. The wall thickening and pericholecystic fluid can relate to venous congestion as seen with aggressive crystalloid therapy, right-sided heart failure, and hepatocellular disease. I cannot completely exclude acalculous cholecystitis. Alireza Greco Jr., MD Abdomen/Pelvis CT 08/26/172000 Signed Impressions: Service Date/Time: August 21:34 - CONCLUSION: 1. No evidence of bilateral Wednesday as are other acute renal abnormality. 2. Hepatomegaly with periportal edema and also trace fluid around the gallbladder. Please see above. No perceptible inflammatory changes. 3. Upper limits of normal to mildly enlarged spleen, nonspecific. 4. Apparent patchy pneumonia in the visualized right base. 5. Small fat containing umbilical hernia. Yimi Harris MD Assessment and Plan Assessment and Plan New onset lower back pain in seting of IVDU-er - r/o diskitis, osteomyelitis, or epuidural abscess Leukocytosis, bandemia - leukemoid reaction Doubt cholecystitis - dw Dr Ahn: HIDA to be done in am - cont broad spectrum abx for now MRI L back fu HIDA in am Discussed Condition With Keisha Leija MD Aug 27, 2017 16:38
[2017-08-27] MEDS ORDERED: GADODIAMIDE PF 287 MG/ML 20 ML VIAL (for RAD MRI) IVCONTRAST ONE (17:17)
--- NOTE | 2017-08-27 17:37 | RADRPT ---
EXAM DATE/TIME: 08/27/2017 16:56 [facility] COMPARISON: CT ABDOMEN & PELVIS W CONTRAST, August 26, 2017, 21:34. INDICATIONS : Abscess. CONTRAST: 17 cc Omniscan (gadodiamide) IV MEDICAL HISTORY : IVDA SURGICAL HISTORY : None. ENCOUNTER: Initial ACUITY: 1 day PAIN SCORE: 4/10 LOCATION: Paraspinal TECHNIQUE: Multiplanar multisequence MRI of the lumbar spine was performed with and without contrast. FINDINGS: The most caudal appearing lumbar vertebra is numbered as L5. VERTEBRAE: Homogeneous signal. Normal alignment. Early disc desiccation at L5-S1 with loss of T2 signal. Otherw ise, disc heights are maintained throughout with normal hydration. CONUS: Normal level and configuration. POST CONTRAST: No abnormal areas of contrast enhancement are seen. T12-L1: The thecal sac has a normal diameter. No evidence of disc bulge or protrusion. The neural foramina are patent bilaterally. L1-L2: The thecal sac has a normal diameter. No evidence of disc bulge or protrusion. The neural foramina are patent bilaterally. L2-L3: The thecal sac has a normal diameter. No evidence of disc bulge or protrusion. The neural foramina are patent bilaterally. L3-L4: The thecal sac has a normal diameter. No evidence of disc bulge or protrusion. The neural foramina are patent bilaterally. L4-L5: The thecal sac has a normal diameter. No evidence of disc bulge or protrusion. The neural foramina are patent bilaterally. L5-S1: The thecal sac has a normal diameter. No evidence of disc bulge or protrusion. The neural foramina are patent bilaterally. CONCLUSION: 1. Very early degenerative disc disease at the lumbosacral junction with mild disc desiccation. 2. Otherwise negative. Disc and vertebral body heights are maintained at all remaining lumbar levels. Spinal canal and neural foramina are widely patent. 3. No abscess identified. Sundeep Murphy MD on August 27, 2017 at 17:31 Board Certified Radiologist. This report was verified electronically.
--- NOTE | 2017-08-27 18:27 | MB ---
cc: BRIGETTE PERSAUD MD DATE OF CONSULTATION 08/27/[address] Radha Matta REASON FOR CONSULTATION Right upper quadrant pain. HISTORY OF PRESENT ILLNESS The patient is a 27-year-old male who presented to [facility] emergency department with acute onset of right upper quadrant pain. This pain started five days ago and increased in severity to the point where he was doubled over in pain and called 911. The patient states he has never had pain like this before. No previous abdominal surgeries. No previous episode of hepatitis, but does state his dad had of hepatitis. He thinks he might have hepatitis due to a history of IV heroin use. On evaluation, the patient was found have elevated leukocytosis as well as elevated transaminases. Imaging showed significant hepatosplenomegaly with trace amount of fluid in the gallbladder and the liver, nonspecific, otherwise gallbladder was normal. Ultrasound showed essentially unremarkable ultrasound of the gallbladder. Also of note. apparently a patchy pneumonia in the right base on CT scan. The patient is admitted, placed on antibiotics. REVIEW OF SYSTEMS 12-point review of systems was conducted with the patient and is negative except for the pertinent positives mentioned above in history of present illness. PAST MEDICAL HISTORY 1. Bipolar disorder, 2. Asthma 3. History of IV drug use. PAST SURGICAL HISTORY None ALLERGIES NO KNOWN DRUG ALLERGIES MEDICATIONS Home medications 1. Azithromycin 2. Prednisone. SOCIAL HISTORY The patient has IV heroin use. Last time was used was within 24 hours of admission, occasionally uses alcohol. Smokes one-pack of cigarettes a day. PHYSICAL EXAMINATION VITAL SIGNS: Blood pressure 162/84, respiratory rate 24, pulse 92, temperature 98.4 degrees, O2 saturation 99% on room air. GENERAL: The patient is a well-developed, well-nourished male in no acute distress. He does not appear acute or chronically ill. HEENT: Head is normocephalic, atraumatic. Pupils round, react and accommodate to light. Sclerae are anicteric. Oral cavity is clear. Airway is patent. NECK: Supple. No JVD. LUNGS: Breath sounds present bilaterally. Nonlabored breathing pattern. HEART: Regular rate and rhythm. ABDOMEN: Soft, subjectively tender in the right upper quadrant without Carlson's sign. No surgical scars or hernias. No ascites. Normal bowel sounds. EXTREMITIES: No clubbing, cyanosis or edema. NEUROLOGIC: The patient is alert and oriented x3, nonfocal peripheral exam. Cranial nerves II-XII are intact. The patient is mildly agitated, but otherwise judgment and insight appear to be intact. LABORATORY DATA White blood cell count 31.7, hemoglobin 12.7, D-dimer 11.3. Bilirubin 0.6, AST 120, ALT 150, phosphorus 100, albumin 2.7. Serologies - hepatitis A - IgM is negative, hepatitis B surface antigen is negative, hepatitis B core IgM antibody is negative. Hepatitis C antibody is reactive. ASSESSMENT/PLAN The patient is a 27-year-old male acute onset of right-sided abdominal pain, hepatitis C positive, IV drug use with possible right lower lobe pneumonia. The patient has very unremarkable imaging characteristics of his gallbladder, has no stones. Doubt the patient has acute cholecystitis and likely his pain and symptoms and clinical presentation are more consistent with pneumonia or hepatitis, possibly both. HIDA scan would help evaluate the gallbladder further to rule out any acute process. We go ahead and order a HIDA scan, although this would likely be negative. If this shows no acute abnormality of the gallbladder such as acute cholecystitis then would not offer any surgical intervention as patient will sign off. They you very much for this consultation for this interesting patient. We will follow up on the HIDA scan. Much for MD DIANE Rudolph/ /2:54 PM /5:57 PM
--- NOTE | 2017-08-27 18:59 | ECHRPT ---
Indication: POSS SEPSIS, ENDOCARDITIS CONCLUSIONS The left ventricular systolic function is normal with an estimated ejection fraction in the range of 55-60%. Trace mitral valve regurgitation. There is mild tricuspid valve regurgitation. No evidence of endocarditis noted BP: 162 / 84 HR: 92 Rhythm: Sinus MEASUREMENTS (Male / Female) Normal Values Technical Quality:Fair 2D ECHO LV Diastolic Diameter PLAX 5.3 cm 4.2 - 5.9 / 3.9 - 5.3 cm LV Systolic Diameter PLAX 3.8 cm IVS Diastolic Thickness 0.9 cm 0.6 - 1.0 / 0.6 - 0.9 cm LVPW Diastolic Thickness 0.9 cm 0.6 - 1.0 / 0.6 - 0.9 cm LV Relative Wall Thickness 0.3 RV Internal Dim ED PLAX 3.4 cm LVOT Diameter 2.4 cm Aortic Root Diameter 3.3 cm LA Systolic Diameter LX 3.7 cm 3.0 - 4.0 / 2.7 - 3.8 cm M-MODE AV Cusp Separation MM 2.3 cm DOPPLER AV Peak Velocity 163.0 cm/s AV Peak Gradient 10.6 mmHg AV Mean Gradient 6.0 mmHg AV Velocity Time Integral 30.7 cm LVOT Peak Velocity 118.0 cm/s LVOT Peak Gradient 5.6 mmHg LVOT Velocity Time Integral 21.8 cm AV Area Cont Eq vti 3.2 cm AV Area Cont Eq pk 3.3 cm Mitral E Point Velocity 94.3 cm/s Mitral A Point Velocity 50.3 cm/s Mitral E to A Ratio 1.9 LV E' Lateral Velocity 22.6 cm/s Mitral E to LV E' Lateral Ratio 4.2 LV E' Septal Velocity 23.3 cm/s Mitral E to LV E' Septal Ratio 4.0 TR Peak Velocity 289.0 cm/s TR Peak Gradient 33.4 mmHg Right Atrial Pressure 10.0 mmHg Pulmonary Artery Systolic Pressu 43.4 mmHg Right Ventricular Systolic Press 43.4 mmHg PV Peak Velocity 105.0 cm/s PV Peak Gradient 4.4 mmHg FINDINGS LEFT VENTRICLE Normal left ventricular size. Wall thickness is normal. The left ventricular systolic function is normal with an estimated ejection fraction in the range of 55-60%. RIGHT VENTRICLE Normal right ventricular size and systolic function. LEFT ATRIUM The left atrial size is normal. RIGHT ATRIUM The right atrial size is mildly dilated. ATRIAL SEPTUM No atrial level shunt is demonstrated by color flow Doppler interrogation. AORTA The aortic root and proximal ascending aorta are normal in size on limited imaging. MITRAL VALVE Structurally normal mitral valve. Trace mitral valve regurgitation. No mitral valve stenosis. AORTIC VALVE Trileaflet aortic valve. No aortic valve stenosis or regurgitation. TRICUSPID VALVE Structurally normal tricuspid valve. There is mild tricuspid valve regurgitation. The estimated pulmonary arterial pressure is 43.4 mmHg. PULMONARY VALVE No pulmonary valve regurgitation or stenosis. PERICARDIUM No pericardial effusion. Kishan English DO (Electronically Signed) Final Date:27 August 2017 18:58
[2017-08-27 19:57] LABS: % SATURATION IRON PROFILE 18.9 % (20-50); IRON (FE) 52 MCG/DL (65-175); TOTAL IRON BINDING CAPACITY 276 MCG/DL (250-450)
[2017-08-27 20:00] LABS: FERRITIN 169 NG/ML (26-388)
[2017-08-27] MEDS ORDERED: NICOTINE 14 MG/24 HR PATCH T-DERMAL SCH (22:00)
[2017-08-27] MEDS ORDERED: IOHEXOL 350 MG/ML 10 ML VIAL (for RAD DIAG) IVCONTRAST ONE (23:11)
--- NOTE | 2017-08-27 23:25 | RADRPT ---
EXAM DATE/TIME: 08/27/2017 23:09 [facility] COMPARISON: No previous studies available for comparison. INDICATIONS : Shortness of breath. IV CONTRAST: 65 cc Omnipaque 350 (iohexol) IV RADIATION DOSE: 10.31 CTDIvol (mGy) MEDICAL HISTORY : Drug use. SURGICAL HISTORY : None. ENCOUNTER: Initial ACUITY: 1 day PAIN SCALE: 0/10 LOCATION: Bilateral chest TECHNIQUE: Volumetric scanning of the chest was performed using a pulmonary embolism protocol MIP images were re constructed. Using automated exposure control and adjustment of the mA and/or kV according to patien t size, radiation dose was kept as low as reasonably achievable to obtain optimal diagnostic quality images. DICOM format image data is available electronically for review and comparison. Follow-up recommendations for detected pulmonary nodules are based at a minimum on nodule size and pa tient risk factors according to Fleischner Society Guidelines. FINDINGS: PULMONARY ARTERIES: No filling defects are seen in the pulmonary arteries through the segmental level. LUNGS: There is no consolidation or pneumothorax . No concerning pulmonary nodule is visualized. PLEURAE: There is no pleural thickening or pleural effusion. MEDIASTINUM: There is good visualization of the great vessels of the middle mediastinum. No evidence of mediastin al or hilar adenopathy/mass. MUSCULOSKELETAL: Within normal limits for patient age. MISCELLANEOUS: The visualized upper abdominal organs demonstrate no acute abnormality. CONCLUSION: No pulmonary embolus. Yimi Gaines MD on August 27, 2017 at 23:21 Board Certified Radiologist. This report was verified electronically.
[2017-08-27] MEDS: NICOTINE 14 MG/24 HR PATCH T-DERMAL SCH (23:53)
[2017-08-28 00:23] VITALS: PULSE 66
[2017-08-28 04:10] VITALS: BP 111/69; PULSE 58; PULSE 62; RESP 16; TEMP 97.9; O2SAT 97
[2017-08-28] MEDS: ACETAMINOPHEN/HYDROcodone 325 MG/7.5 MG TAB PO PRN ×5 (04:16→21:56)
[2017-08-28] MEDS: PIPERACIL-TAZO 4.5 GM PREMIX 100 ML IV SCH ×4 (04:17→21:57)
[2017-08-28] MEDS: SODIUM CHLOR 0.9% 1000 ML INJ 1,000 ML IV SCH ×3 (05:24→23:58)
[2017-08-28] MEDS ORDERED: PHARMACY ORDERED LAB ONE (07:45)
[2017-08-28 08:00] VITALS: BP 128/80; PULSE 63; RESP 20; TEMP 96.9; O2SAT 99
[2017-08-28 08:40] LABS: ALBUMIN 2.7 GM/DL (3.4-5.0); DIRECT BILIRUBIN ADULT 0.1 MG/DL (0.0-0.2)
[2017-08-28 08:41] LABS: INDIRECT BILIRUBIN 0.1 MG/DL (0.0-0.8); TOTAL BILIRUBIN ADULT 0.2 MG/DL (0.2-1.0); TOTAL PROTEIN 6.6 GM/DL (6.4-8.2)
[2017-08-28] MEDS: VANCOMYCIN INJ 1,250 MG in SODIUM CHLOR 0.9% 250 ML INJ 250 ML IV SCH ×2 (08:46→12:39)
[2017-08-28] MEDS: NICOTINE 14 MG/24 HR PATCH T-DERMAL SCH (12:40)
[2017-08-28] MEDS: SODIUM CHLORIDE 0.9% FLUSH 10 ML FLUSH IV FLUSH SCH ×2 (12:41→19:33)
[2017-08-28] MEDS ORDERED: SINCALIDE 5 MCG/5 ML VIAL IV ONE (14:29)
--- NOTE | 2017-08-28 14:52 | RADRPT ---
EXAM DATE/TIME: 08/28/2017 10:06 [facility] COMPARISON: No previous studies available for comparison. INDICATIONS : Abdominal and lower back pain. DOSE: 4 mCi Tc99m Mebrofenin IV MEDICATION: 1.7 mcg Cholecystokinin IV; Indential symptomatic response. Cholecystokinin was administered by slow infusion over 8 minutes beginning at 60 minutes. MEDICAL HISTORY : IV drug abuse, heroin. SURGICAL HISTORY : None. ENCOUNTER: Initial ACUITY: 1 day PAIN SCALE: 6/10 LOCATION: Bilateral back. TECHNIQUE: Following the intravenous administration of radiotracer, dynamic sequential image were performed with continuous acquisition. Time-activity curves were generated. FINDINGS: HEPATIIC KINETICS: There is prompt uptake of radiotracer in the liver. No focal defects are seen. There is normal rate of washout from the hepatic parenchyma. BILIARY CLEARANCE: Activity is first seen in the extrahepatic biliary system at 10 minutes. There is normal excretion i nto the small bowel. GALLBLADDER: Activity is first seen in the gallbladder at 15 minutes. POST CHOLECYSTOKININ: After Cholecystokinin administration, there is prompt emptying of the gallbladder with a 80% ejection fraction. Common bile duct kinetics are normal and there is no evidence of biliary obstruction. BILIARY ENTERIC REFLUX: None observed. CONCLUSION: Biliary scan within normal limits. Tha Pedersen MD on August 28, 2017 at 14:48 Board Certified Radiologist. This report was verified electronically.
--- NOTE | 2017-08-28 15:33 | HHI.PR ---
Subjective Remarks Patient c/o profuse diarrhea ever since he got here to the hospital. Denies fevers or chills. States that vomited several times on admission Patient was in the ED on 08/14 and was discharged with azithromycin and prednisone. c/o diffuse abdominal pain, diarrhea, denies fevers or chills. Objective Vitals Vital Signs Date Time Temp Pulse Resp B/P (MAP) Pulse Ox O2 Delivery O2 Flow Rate FiO2 08/28/17 08:00 96.9 63 20 128/80 (96) 99 08/28/17 04:10 97.9 58 16 111/69 (83) 97 08/28/17 04:10 62 08/28/17 00:23 66 08/27/17 23:00 97.6 67 16 125/72 (89) 97 08/27/17 20:15 98.4 72 16 126/67 (86) 99 08/27/17 16:39 97.7 77 18 139/70 (93) 99 I/O 08/27/17 08/27/17 08/27/17 08/28/17 08/28/17 08/28/17 07:00 15:00 23:00 07:00 15:00 23:00 Intake Total 3625.0 ml 483 ml 1654 ml Balance 3625.0 ml 483 ml 1654 ml Intake Oral 240 ml 0 ml IV Total 3625.0 ml 243 ml 1654 ml # Voids 1 1 2 # Bowel Movements 1 0 Result Diagram: 08/27/17 0611 08/27/17 0611 Imaging Last Impressions Lumbar Spine MRI 08/27/17 0000 Signed Impressions: Service Date/Time: Sunday, August 27, 2017 16:56 - CONCLUSION: 1. Very early degenerative disc disease at the lumbosacral junction with mild disc desiccation. 2. Otherwise negative. Disc and vertebral body heights are maintained at all remaining lumbar levels. Spinal canal and neural foramina are widely patent. 3. No abscess identified. Sundeep Murphy MD Gall Bladder Ultrasound 08/27/17 0000 Signed Impressions: Service Date/Time: Sunday, August 27, 2017 07:56 - CONCLUSION: 1. The gallbladder wall is thickened and there is small volume pericholecystic fluid but no stones, sludge, or distention of the gallbladder. The wall thickening and pericholecystic fluid can relate to venous congestion as seen with aggressive crystalloid therapy, right-sided heart failure, and hepatocellular disease. I cannot completely exclude acalculous cholecystitis. Alireza Greco Jr., MD CT Angiography 08/27/17 Signed Impressions: Service Date/Time: Sunday, August 27, 2017 23:09 - CONCLUSION: No pulmonary embolus. Yimi Gaines MD Abdomen/Pelvis CT [id number]/26/[id number] Signed Impressions: Service Date/Time: August 21:34 - CONCLUSION: 1. No evidence of bilateral Wednesday as are other acute renal abnormality. 2. Hepatomegaly with periportal edema and also trace fluid around the gallbladder. Please see above. No perceptible inflammatory changes. 3. Upper limits of normal to mildly enlarged spleen, nonspecific. 4. Apparent patchy pneumonia in the visualized right base. 5. Small fat containing umbilical hernia. Yimi Harris MD Objective Remarks AAOx3 nad ROBBIE, EOMI, anicteric sclera S1S2 RRR, no MRG Clear lungs BL abdomen is soft with hyperactive bowel movements, diffusely tender to palpation , no guarding or rebound tenderness. No edema in lower extremities Procedures none Medications and IVs Current Medications Medications (Trade) Dose Ordered Sig/Isiah Route Start Time Stop Time Status Last Admin Sodium Chloride 1,000 ml @ 100 mls/hr Q10H IV 08/26/17 23:24 08/27/17 23:55 (NS Flush) 2 ml UNSCH PRN IV FLUSH 08/26/17 23:30 (NS Flush) 2 ml BID IV FLUSH 08/27/17 09:00 08/28/17 12:41 (Tylenol) 650 mg Q4H PRN PO 08/26/17 23:30 08/27/17 13:48 (Zofran Inj) 4 mg Q6H PRN IVP 08/26/17 23:30 Pharmacy Profile Note 0 ml @ 0 mls/hr UNSCH OTHER 08/27/17 02:15 Piperacillin Sod/ Tazobactam Sod 100 ml @ 200 mls/hr Q6H IV 08/27/17 05:00 08/28/17 04:17 (Duoneb Neb) 1 ampule Q4HR NEB PRN NEB 08/27/17 02:30 Vancomycin HCl 1250 mg/Sodium Chloride 262.5 ml @ 250 mls/hr Q8H IV 08/27/17 16:00 08/28/17 12:39 ([place] 5-325 Mg) 1 tab Q4H PRN PO 08/27/17 14:30 ([place] 7.5-325 Mg) 1 tab Q4H PRN PO 08/27/17 14:30 08/28/17 12:40 (Narcan Inj) 0.4 mg UNSCH PRN IV PUSH 08/27/17 14:30 (Habitrol 14 Mg Patch.24 Hr) 1 patch DAILY T-DERMAL 08/27/17 23:45 08/28/17 12:40 Miscellaneous Information 1 HS T-DERMAL 08/28/17 21:00 A/P Problem List: (1) Sepsis ICD Code: A41.9 - Sepsis, unspecified organism Plan: Sepsis present on admission, patient with leukocytosis of 21.2 K, heart rate of 92 and respiratory rate of 24. WBC increasing to 31.7K and bandemia 30% on 08/27 along with toxic vacuolization. Blood cultures negative 2 Influenza A and B-. The patient has been started in IV vancomycin and IV Zosyn. ID consulted. Continue antibiotics as per ID recommendations. The patient currently on IV vancomycin and IV Zosyn. Presumed to be secondary to pneumonia, however CTA of the chest ruled out pulmonary emboli and also did not show any consolidation or pneumothorax. Patient is now having diarrhea, suspect sepsis secondary to gastroenteritis. We 'll check stool studies and C. difficile toxin PCR. (2) Diarrhea ICD Code: R19.7 - Diarrhea, unspecified Plan: Patient recently was prescribed azithromycin for an upper respiratory infection. We'll check stool studies and C. difficile toxin PCR. (3) Heroin abuse ICD Code: F11.10 - Opioid abuse, uncomplicated Plan: Advised cessation. (4) Transaminitis ICD Code: R74.0 - Nonspecific elevation of levels of transaminase and lactic acid dehydrogenase [LDH] Plan: On admission patient had elevated transaminases with an ALT of 163 and an AST of 277 with normal urobilinogen of 0.7. Patient has history of hepatitis C. CT abdomen and pelvis did not show any renal abnormalities. Showed hepatomegaly with periportal edema and trace fluid around the gallbladder. Upper limits of normal to mildly enlarged spleen. Apparent patchy pneumonia in the visualized right base. CTA of the chest ruled out pulmonary emboli and also did not show any consolidation or pneumothorax. Transaminases are trending down. (5) Tobacco abuse ICD Code: Z72.0 - Tobacco use Plan: Advised tobacco cessation. On nicotine patch. (6) Abdominal pain ICD Code: R10.9 - Unspecified abdominal pain Plan: Patient with generalized abdominal pain and associated diarrhea. Checks his studies, check C. difficile toxin PCR. Continue oral [place] for treatment of pain. Surgery consulted. Recommended biliary scan which is within normal limits. Suspect abdominal pain secondary to gastroenteritis. (7) Hypokalemia ICD Code: E87.6 - Hypokalemia Status: Acute Plan: I be secondary to GI loss. Replace orally and continue to monitor BMP. Replace as needed. Assessment and Plan DVT prophylaxis: SCDs. Discharge Planning Continue to monitor in the medical floor. Problem Qualifiers (1) Sepsis: Qualified Codes: A41.9 - Sepsis, unspecified organism (2) Diarrhea: Qualified Codes: R19.7 - Diarrhea, unspecified (3) Abdominal pain: Qualified Codes: R10.84 - Generalized abdominal pain Antony Winston MD Aug 28, 2017 15:33
[2017-08-28 16:00] VITALS: BP 126/81; PULSE 63; RESP 18; TEMP 97.5; O2SAT 100
--- NOTE | 2017-08-28 16:16 | HHI.IDPN ---
Subjective Subjective Remarks co diarrhea co nause, eats 100% of his food co RUQ pain MRI back unremarkable HIDA is normal Antibiotics zosyn vanco Allergies: Coded Allergies: No Known Allergies (Verified Adverse Reaction, Unknown, 08/26/17) Objective . Vital Signs Date Time Temp Pulse Resp B/P (MAP) Pulse Ox O2 Delivery O2 Flow Rate FiO2 08/28/17 08:00 96.9 63 20 128/80 (96) 99 08/28/17 04:10 97.9 58 16 111/69 (83) 97 08/28/17 04:10 62 08/28/17 00:23 66 08/27/17 23:00 97.6 67 16 125/72 (89) 97 08/27/17 20:15 98.4 72 16 126/67 (86) 99 08/27/17 16:39 97.7 77 18 139/70 (93) 99 . Laboratory Tests Test 08/26/17 20:20 08/27/17 06:11 White Blood Count 21.2 TH/MM3 31.7 TH/MM3 Red Blood Count 4.82 MIL/MM3 4.45 MIL/MM3 Hemoglobin 13.6 GM/DL 12.7 GM/DL Hematocrit 40.0 % 37.5 % Mean Corpuscular Volume 83.1 FL 84.3 FL Mean Corpuscular Hemoglobin 28.2 PG 28.6 PG Mean Corpuscular Hemoglobin Concent 33.9 % 33.9 % Red Cell Distribution Width 13.3 % 13.5 % Platelet Count 261 TH/MM3 235 TH/MM3 Mean Platelet Volume 8.4 FL 8.9 FL Neutrophils (%) (Auto) 96.7 % 91.0 % Lymphocytes (%) (Auto) 2.3 % 5.8 % Monocytes (%) (Auto) 0.5 % 2.7 % Eosinophils (%) (Auto) 0.3 % 0.4 % Basophils (%) (Auto) 0.2 % 0.1 % Neutrophils # (Auto) 20.5 TH/MM3 28.9 TH/MM3 Lymphocytes # (Auto) 0.5 TH/MM3 1.9 TH/MM3 Monocytes # (Auto) 0.1 TH/MM3 0.8 TH/MM3 Eosinophils # (Auto) 0.1 TH/MM3 0.1 TH/MM3 Basophils # (Auto) 0.0 TH/MM3 0.0 TH/MM3 CBC Comment DIFF FINAL AUTO DIFF Differential Comment FINAL DIFF MANUAL Differential Total Cells Counted 100 Neutrophils % (Manual) 61 % Band Neutrophils % 33 % Lymphocytes % 5 % Monocytes % 1 % Neutrophils # (Manual) 29.8 TH/MM3 Toxic Vacuolation PRESENT Platelet Estimate NORMAL Platelet Morphology Comment NORMAL Red Cell Morphology Comment NORMAL Laboratory Tests Test 08/26/17 20:20 08/26/17 23:05 08/27/17 04:20 08/27/17 06:11 Blood Urea Nitrogen 12 MG/DL 9 MG/DL Creatinine 0.90 MG/DL 0.73 MG/DL Random Glucose 93 MG/DL 73 MG/DL Total Protein 7.3 GM/DL 6.5 GM/DL Albumin 3.2 GM/DL 2.7 GM/DL Calcium Level 8.6 MG/DL 7.7 MG/DL Alkaline Phosphatase 133 U/L 100 U/L Aspartate Amino Transf (AST/SGOT) 277 U/L 120 U/L Alanine Aminotransferase (ALT/SGPT) 163 U/L 150 U/L Total Bilirubin 0.7 MG/DL 0.6 MG/DL Sodium Level 136 MEQ/L 141 MEQ/L Potassium Level 3.3 MEQ/L 3.5 MEQ/L Chloride Level 101 MEQ/L 108 MEQ/L Carbon Dioxide Level 26.1 MEQ/L 25.2 MEQ/L Anion Gap 9 MEQ/L 8 MEQ/L Estimat Glomerular Filtration Rate 102 ML/MIN 130 ML/MIN Lipase 78 U/L Lactic Acid Level 2.2 mmol/L 1.1 mmol/L Total Creatine Kinase 135 U/L B-Type Natriuretic Peptide 59 PG/ML Test 08/27/17 18:15 08/28/17 07:41 Iron Level 52 MCG/DL Total Iron Binding Capacity 276 MCG/DL Percent Iron Saturation 18.9 % Ferritin 169 NG/ML Tumor Marker Alpha Fetoprotein 1.4 NG/ML Total Bilirubin 0.2 MG/DL Direct Bilirubin 0.1 MG/DL Indirect Bilirubin 0.1 MG/DL Aspartate Amino Transf (AST/SGOT) 43 U/L Alanine Aminotransferase (ALT/SGPT) 104 U/L Alkaline Phosphatase 76 U/L Total Protein 6.6 GM/DL Albumin 2.7 GM/DL Microbiology Date/Time Source Procedure Growth Status 08/26/17 22:20 Blood Peripheral Aerobic Blood Culture - Preliminary NO GROWTH IN 2 DAYS Resulted 08/26/17 22:20 Blood Peripheral Anaerobic Blood Culture - Preliminary NO GROWTH IN 2 DAYS Resulted 08/26/17 22:00 Blood Peripheral Aerobic Blood Culture - Preliminary NO GROWTH IN 2 DAYS Resulted 08/26/17 22:00 Blood Peripheral Anaerobic Blood Culture - Preliminary NO GROWTH IN 2 DAYS Resulted 08/27/17 09:20 Nasal Washing Influenza Types A,B Antigen (CLAUDINE) - Final NEGATIVE FOR FLU A AND B ANTIGEN.... Complete Imaging Last Impressions Lumbar Spine MRI 08/27/17 Signed Impressions: Service Date/Time: Sunday, August 27, 2017 16:56 - CONCLUSION: 1. Very early degenerative disc disease at the lumbosacral junction with mild disc desiccation. 2. Otherwise negative. Disc and vertebral body heights are maintained at all remaining lumbar levels. Spinal canal and neural foramina are widely patent. 3. No abscess identified. Sundeep Murphy MD Hepatobiliary Scan Nuclear Medicine 08/27/17 Signed Impressions: Service Date/Time: Monday, August 28, 2017 10:06 - CONCLUSION: Biliary scan within normal limits. Tha Pedersen MD Gall Bladder Ultrasound 08/27/17 Signed Impressions: Service Date/Time: Sunday, August 27, 2017 07:56 - CONCLUSION: 1. The gallbladder wall is thickened and there is small volume pericholecystic fluid but no stones, sludge, or distention of the gallbladder. The wall thickening and pericholecystic fluid can relate to venous congestion as seen with aggressive crystalloid therapy, right-sided heart failure, and hepatocellular disease. I cannot completely exclude acalculous cholecystitis. Alireza Greco Jr., MD CT Angiography 08/27/17 Signed Impressions: Service Date/Time: Sunday, August 27, 2017 23:09 - CONCLUSION: No pulmonary embolus. Yimi Gaines MD Abdomen/Pelvis CT [id number]/[id number] Signed Impressions: Service Date/Time: August 21:34 - CONCLUSION: 1. No evidence of bilateral Wednesday as are other acute renal abnormality. 2. Hepatomegaly with periportal edema and also trace fluid around the gallbladder. Please see above. No perceptible inflammatory changes. 3. Upper limits of normal to mildly enlarged spleen, nonspecific. 4. Apparent patchy pneumonia in the visualized right base. 5. Small fat containing umbilical hernia. Yimi Harris MD Physical Exam CONSTITUTIONAL/GENERAL: This is an adequately nourished patient, in no apparent distress. TUBES/LINES/DRAINS: SKIN: No jaundice, rashes, or lesions. + B/L a/c areas niddle arboleda. Skin temperature appropriate. Not diaphoretic. CARDIOVASCULAR: Regular rate and rhythm without murmurs, gallops, or rubs. No JVD. Peripheral pulses symmetric. RESPIRATORY/CHEST: Symmetric, unlabored respirations. Clear to auscultation. Breath sounds equal bilaterally. No wheezes, rales, or rhonchi. GASTROINTESTINAL: Abdomen soft, non-tender, nondistended. No hepato-splenomegaly , or palpable masses. No guarding. Bowel sounds present. GENITOURINARY: Without palpable bladder distension. MUSCULOSKELETAL: Extremities without clubbing, cyanosis, or edema. No joint tenderness or effusion noted. No calf tenderness. No mottling or clubbing. NEUROLOGICAL: Awake and alert. Motor and sensory grossly within normal limits. Follows commands. Clear speech . Moves all extremities. PSYCHIATRIC: No obvious anxiety/depression. no apparent hallucinations or other psychotic thought process. Assessment & Plan Remarks New onset lower back pain in seting of IVDU-er - No e/o diskitis, osteomyelitis, or epuidural abscess on MRI Leukocytosis, bandemia - leukemoid reaction Doubt cholecystitis - HIDA wnl - cont broad spectrum abx for now Diarrhea fu WBC chk stool for C.diff if BC remain negative will stop abx Dw Keisha Reyna MD Aug 28, 2017 16:15
--- NOTE | 2017-08-28 17:17 | HHI.GIFU ---
Subjective Remarks Resting in the bed watching a movie friend with him Seems calmer today less anxious no acute abdominal pain No nausea vomiting Diarrhea continues mild (Nancy Pierre) Objective Vitals I&O Vital Signs Date Time Temp Pulse Resp B/P (MAP) Pulse Ox O2 Delivery O2 Flow Rate FiO2 08/28/17 08:00 96.9 63 20 128/80 (96) 99 08/28/17 04:10 97.9 58 16 111/69 (83) 97 08/28/17 04:10 62 08/28/17 00:23 66 08/27/17 23:00 97.6 67 16 125/72 (89) 97 08/27/17 20:15 98.4 72 16 126/67 (86) 99 I/O 08/27/17 08/27/17 08/27/17 08/28/17 08/28/17 08/28/17 07:00 15:00 23:00 07:00 15:00 23:00 Intake Total 3625.0 ml 483 ml 1654 ml 250 ml Balance 3625.0 ml 483 ml 1654 ml 250 ml Intake Oral 240 ml 0 ml IV Total 3625.0 ml 243 ml 1654 ml 250 ml # Voids 1 1 2 # Bowel Movements 1 0 Laboratory Laboratory Tests Test 08/27/17 18:15 08/28/17 07:41 08/28/17 12:18 Iron Level 52 Total Iron Binding Capacity 276 Percent Iron Saturation 18.9 Ferritin 169 Tumor Marker Alpha Fetoprotein 1.4 Total Bilirubin 0.2 Direct Bilirubin 0.1 Indirect Bilirubin 0.1 Aspartate Amino Transf (AST/SGOT) 43 Alanine Aminotransferase (ALT/SGPT) 104 Alkaline Phosphatase 76 Total Protein 6.6 Albumin 2.7 Vancomycin Level Trough 1.7 Date/Time Source Procedure Growth Status 08/26/17 22:20 Blood Peripheral Aerobic Blood Culture - Preliminary NO GROWTH IN 2 DAYS Resulted 08/26/17 22:20 Blood Peripheral Anaerobic Blood Culture - Preliminary NO GROWTH IN 2 DAYS Resulted 08/27/17 09:20 Nasal Washing Influenza Types A,B Antigen (CLAUDINE) - Final NEGATIVE FOR FLU A AND B ANTIGEN.... Complete Imaging Last Impressions Lumbar Spine MRI 08/27/17 0000 Signed Impressions: Service Date/Time: Sunday, August 27, 2017 16:56 - CONCLUSION: 1. Very early degenerative disc disease at the lumbosacral junction with mild disc desiccation. 2. Otherwise negative. Disc and vertebral body heights are maintained at all remaining lumbar levels. Spinal canal and neural foramina are widely patent. 3. No abscess identified. Sundeep Murphy MD Hepatobiliary Scan Nuclear Medicine 08/27/17 Signed Impressions: Service Date/Time: Monday, August 28, 2017 10:06 - CONCLUSION: Biliary scan within normal limits. Tha Pedersen MD Gall Bladder Ultrasound 08/27/17 Signed Impressions: Service Date/Time: Sunday, August 27, 2017 07:56 - CONCLUSION: 1. The gallbladder wall is thickened and there is small volume pericholecystic fluid but no stones, sludge, or distention of the gallbladder. The wall thickening and pericholecystic fluid can relate to venous congestion as seen with aggressive crystalloid therapy, right-sided heart failure, and hepatocellular disease. I cannot completely exclude acalculous cholecystitis. Alireza Greco Jr., MD CT Angiography 08/27/17 Signed Impressions: Service Date/Time: Sunday, August 27, 2017 23:09 - CONCLUSION: No pulmonary embolus. Yimi Gaines MD Abdomen/Pelvis CT [id number]/26/172000 Signed Impressions: Service Date/Time: August 21:34 - CONCLUSION: 1. No evidence of bilateral Wednesday as are other acute renal abnormality. 2. Hepatomegaly with periportal edema and also trace fluid around the gallbladder. Please see above. No perceptible inflammatory changes. 3. Upper limits of normal to mildly enlarged spleen, nonspecific. 4. Apparent patchy pneumonia in the visualized right base. 5. Small fat containing umbilical hernia. Yimi Harris MD Physical Exam HEENT: Pupils round and reactive to light; normocephalic; atraumatic; no jaundice. Oral cavity clean NECK: Neck is supple, no JVD, no lymphadenopathy. CHEST: Chest I'll diminished CARDIAC: Regular rate and rhythm ABDOMEN: Soft, nondistended, nontender; no hepatosplenomegaly; bowel sounds are present in all four quadrants. EXTREMITIES: No clubbing, cyanosis, or edema. SKIN: Normal; no rash; no jaundice. MANAGER DOCUMENT CONTROL: oriented times three. Speech clear (Nancy Pierre) Assessment and Plan Plan Plan Right upper quadrant pain hepatitis C positive with IV drug use positive , Possible cholecystitis, gallbladder ultrasound done on 08/27/17 showed gallbladder wall thickening, but no stones and no sludge no distention. This could possibly be due to venous congestion; or cholecystitis. Ultrasound cannot exclude acalculous cholelithiasis. Doubt gallbladder disease patient is positive for hep C and IV drug use. Leukocytosis increase to 31.7, currently patient's been managed on vancomycin and Zosyn, no abscess or discitis found on MRI, being followed per ID Anemia hemoglobin stable . Possible iron deficiency, normal ferritin and TIBC, O2 saturation 8.9, iron level 52 Hepatitis C reactive, admits to daily IV heroin use for the past 7-8 years shares, needles. Transaminitis current LFTs ALT 120 AST 150 AFP 1.4 Diarrhea continues today, unspecified, possibly due to liver involvement, drugs , inflammation versus infection Plan Diet as tolerated Stool studies first Consider Flagyl 500 every 8 by mouth if stool studies okay Ultrasound of the liver Liver workup in progress Currently negative of symptoms Once labs are completed we will discuss how patient needs Call for any acute bleeding episodes Supportive care Patient was seen by myself and Dr. Azar, opal written on his behalf (Nancy Pierre) Physician Comments Patient was seen and examined, agree with above-noted, still having diarrhea, will check stool workup, elevated liver function does most likely related to hepatitis C, patient will need treatment as an outpatient once off any drug abuse, we will check hepatitis C viral load (Antony Azar MD) Nancy Pierre Aug 28, 2017 17:17 Antony Azar MD Aug 28, 2017 20:16
[2017-08-28] MEDS: VANCOMYCIN 1,500 MG/NS 500 ML IV SCH ×2 (19:32)
[2017-08-28] MEDS: REMOVE OLD PATCH T-DERMAL SCH (19:33)
[2017-08-28 20:00] VITALS: BP 130/77; PULSE 62; RESP 18; TEMP 96.6; O2SAT 97
[2017-08-28] MEDS ORDERED: REMOVE OLD PATCH T-DERMAL SCH (21:00)
[2017-08-29] VITALS (8 sets, daily range): BP systolic 101–137; BP diastolic 63–79; PULSE 53–88; RESP 16–18; TEMP 96.7–97.7; O2SAT 97–100
[2017-08-29] MEDS: PIPERACIL-TAZO 4.5 GM PREMIX 100 ML IV SCH ×3 (03:37→17:00)
[2017-08-29] MEDS: VANCOMYCIN 1,500 MG/NS 500 ML IV SCH ×4 (03:38→13:37)
[2017-08-29] MEDS: ACETAMINOPHEN/HYDROcodone 325 MG/7.5 MG TAB PO PRN ×4 (03:42→20:35)
[2017-08-29 07:26] LABS: AUTOMATED NEUTROPHIL # 5.3 TH/MM3 (1.8-7.7); BASOPHIL # 0.1 TH/MM3 (0-0.2); BASOPHIL % 0.8 % (0.0-2.0); EOSINOPHIL # 0.5 TH/MM3 (0-0.4); EOSINOPHIL % 6.2 % (0.0-4.0); HEMATOCRIT 39.4 % (39.0-51.0); HEMOGLOBIN 13.4 GM/DL (13.0-17.0); LYMPH % 24.4 % (9.0-44.0); LYMPHOCYTE # 2.1 TH/MM3 (1.0-4.8); MEAN CELL VOLUME 84.9 FL (80.0-100.0); MEAN CORPUSCULAR HEMOGLOBIN 28.9 PG (27.0-34.0); MEAN PLATELET VOLUME 9.2 FL (7.0-11.0); MONO % 6.7 % (0.0-8.0); MONOCYTE # 0.6 TH/MM3 (0-0.9); NEUT % 61.9 % (16.0-70.0); PLATELET COUNT 236 TH/MM3 (150-450); RED BLOOD COUNT 4.64 MIL/MM3 (4.50-5.90); RED CELL DISTRIBUTION WIDTH 13.3 % (11.6-17.2); WHITE BLOOD COUNT 8.6 TH/MM3 (4.0-11.0)
[2017-08-29] MEDS: NICOTINE 14 MG/24 HR PATCH T-DERMAL SCH (08:45)
[2017-08-29] MEDS: SODIUM CHLORIDE 0.9% FLUSH 10 ML FLUSH IV FLUSH SCH ×2 (09:23→20:35)
--- NOTE | 2017-08-29 11:02 | HHI.GIFU ---
Subjective Remarks Calm resting in the bed ,friend in the room with him Right upper quadrant tenderness is resolving, no bloating noted Continues with diarrhea, no blood noted, 3-4 times a day (Nancy Pierre) Objective Vitals I&O Vital Signs Date Time Temp Pulse Resp B/P (MAP) Pulse Ox O2 Delivery O2 Flow Rate FiO2 08/29/17 08:00 97.3 63 18 101/65 (77) 100 08/29/17 03:40 97.7 67 17 121/74 (90) 97 08/29/17 00:00 97.0 53 16 117/66 (83) 98 08/28/17 20:00 96.6 62 18 130/77 (94) 97 08/28/17 16:00 97.5 63 18 126/81 (96) 100 I/O 08/28/17 08/28/17 08/28/17 08/29/17 08/29/17 08/29/17 07:00 15:00 23:00 07:00 15:00 23:00 Intake Total 1654 ml 850 ml 960 ml 1335 ml Balance 1654 ml 850 ml 960 ml 1335 ml Intake Oral 0 ml 600 ml 960 ml 720 ml IV Total 1654 ml 250 ml 615 ml # Voids 2 3 2 2 # Bowel Movements 0 2 Laboratory Laboratory Tests Test 08/28/17 12:18 08/29/17 06:47 08/29/17 08:50 Vancomycin Level Trough 1.7 White Blood Count 8.6 Red Blood Count 4.64 Hemoglobin 13.4 Hematocrit 39.4 Mean Corpuscular Volume 84.9 Mean Corpuscular Hemoglobin 28.9 Mean Corpuscular Hemoglobin Concent 34.0 Red Cell Distribution Width 13.3 Platelet Count 236 Mean Platelet Volume 9.2 Neutrophils (%) (Auto) 61.9 Lymphocytes (%) (Auto) 24.4 Monocytes (%) (Auto) 6.7 Eosinophils (%) (Auto) 6.2 Basophils (%) (Auto) 0.8 Neutrophils # (Auto) 5.3 Lymphocytes # (Auto) 2.1 Monocytes # (Auto) 0.6 Eosinophils # (Auto) 0.5 Basophils # (Auto) 0.1 CBC Comment DIFF FINAL Differential Comment Stool C. difficile Toxin (PCR) NEGATIVE Stl C. difficile Toxin Epiderm 027 PRESUMPTIVE NEGATIVE Date/Time Source Procedure Growth Status 08/26/17 22:20 Blood Peripheral Aerobic Blood Culture - Preliminary Gram Positive Cocci Resulted 08/26/17 22:20 Blood Peripheral Anaerobic Blood Culture - Preliminary NO GROWTH IN 2 DAYS Resulted 08/29/17 08:50 Stool Stool Pending Received 08/27/17 09:20 Nasal Washing Influenza Types A,B Antigen (CLAUDINE) - Final NEGATIVE FOR FLU A AND B ANTIGEN.... Complete Imaging Last Impressions Lumbar Spine MRI 08/27/17 Signed Impressions: Service Date/Time: Sunday, August 27, 2017 16:56 - CONCLUSION: 1. Very early degenerative disc disease at the lumbosacral junction with mild disc desiccation. 2. Otherwise negative. Disc and vertebral body heights are maintained at all remaining lumbar levels. Spinal canal and neural foramina are widely patent. 3. No abscess identified. Sundeep Murphy MD Hepatobiliary Scan Nuclear Medicine 08/27/17 Signed Impressions: Service Date/Time: Monday, August 28, 2017 10:06 - CONCLUSION: Biliary scan within normal limits. Tha Pedersen MD Gall Bladder Ultrasound 08/27/17 Signed Impressions: Service Date/Time: Sunday, August 27, 2017 07:56 - CONCLUSION: 1. The gallbladder wall is thickened and there is small volume pericholecystic fluid but no stones, sludge, or distention of the gallbladder. The wall thickening and pericholecystic fluid can relate to venous congestion as seen with aggressive crystalloid therapy, right-sided heart failure, and hepatocellular disease. I cannot completely exclude acalculous cholecystitis. Alireza Greco Jr., MD CT Angiography 08/27/17 Signed Impressions: Service Date/Time: Sunday, August 27, 2017 23:09 - CONCLUSION: No pulmonary embolus. Yimi Gaines MD Abdomen/Pelvis CT 08/26/172000 Signed Impressions: Service Date/Time: August 21:34 - CONCLUSION: 1. No evidence of bilateral Wednesday as are other acute renal abnormality. 2. Hepatomegaly with periportal edema and also trace fluid around the gallbladder. Please see above. No perceptible inflammatory changes. 3. Upper limits of normal to mildly enlarged spleen, nonspecific. 4. Apparent patchy pneumonia in the visualized right base. 5. Small fat containing umbilical hernia. Yimi Harris MD Physical Exam HEENT: Pupils round and reactive to light; normocephalic; atraumatic; no jaundice. Oral cavity clear NECK: Neck is supple CHEST: Chest sounds much improved essentially clear, no wheezing CARDIAC: Regular rate and rhythm ABDOMEN: Soft, nondistended, minimal right upper quadrant tenderness on light palpation, resolving; no hepatosplenomegaly; bowel sounds are present in all four quadrants. EXTREMITIES: No clubbing, cyanosis, or edema. SKIN: Normal; no rash; no jaundice. 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 Speech clear, calm affect (Nacny Pierre) Assessment and Plan Plan Plan Right upper quadrant pain hepatitis C positive with IV drug use positive , right upper quadrant pain is resolving, minimal tenderness to light palpation, abdomen soft non-bloated, bowel sounds are active Possible cholecystitis currently being ruled out, gallbladder ultrasound done on 08/27/17 showed gallbladder wall thickening, but no stones and no sludge no distention. This could possibly be due to venous congestion; or cholecystitis. Ultrasound cannot exclude acalculous cholelithiasis. HIDA scan negative, has been seen by general surgery and at this time no surgical needs with negative HIDA scan Leukocytosis resolved today, white count decreased to 8.6 Anemia initially on admission , hemoglobin back up to 13.4 Labs initially showed positive d-dimer 11.37, no PE seen on CT angiography. Hepatitis C reactive, admits to daily IV heroin use for the past 7-8 years shares, needles. AFP 1.4, other liver workup labs are pending Diarrhea continues today, unspecified, possibly due to liver involvement, drugs , inflammation versus infection Plan Diet as tolerated Stool studies collected, negative C. difficile Flagyl 250 mg every 8hr by mouth Liver labs workup in progress Once labs are completed we will discuss how patient needs, we'll need to consider outpatient GI follow-up. Discussed with patient Call for any acute bleeding episodes Supportive care Patient was seen by myself and opal Chowdhury written on his behalf (Nancy Pierre) Plan Patient was seen and examined, agree with above-noted, doing better today, no C. difficile, patient can be follow-up as an outpatient from GI perspective for his hepatitis C we will follow up as needed (Antony Azar MD) Nancy Pierre Aug 29, 2017 11:02 Antony Azar MD Aug 29, 2017 14:15
[2017-08-29] MEDS ORDERED: PHARMACY ORDERED LAB ONE (11:45)
[2017-08-29] MEDS: SODIUM CHLOR 0.9% 1000 ML INJ 1,000 ML IV SCH ×2 (12:06→20:43)
[2017-08-29] MEDS: metroNIDAZOLE 250 MG TAB PO SCH ×2 (15:03→21:21)
--- NOTE | 2017-08-29 16:49 | HHI.PR ---
Subjective Remarks Patient states diarrhea resolved. Denies cp/sob. Denies abdominal pain or nausea. Objective Vitals Vital Signs Date Time Temp Pulse Resp B/P (MAP) Pulse Ox O2 Delivery O2 Flow Rate FiO2 08/29/17 12:00 69 18 123/79 (94) 98 08/29/17 08:00 97.3 63 18 101/65 (77) 100 08/29/17 03:40 97.7 67 17 121/74 (90) 97 08/29/17 00:00 97.0 53 16 117/66 (83) 98 08/28/17 20:00 96.6 62 18 130/77 (94) 97 I/O 08/28/17 08/28/17 08/28/17 08/29/17 08/29/17 08/29/17 07:00 15:00 23:00 07:00 15:00 23:00 Intake Total 1654 ml 850 ml 960 ml 1335 ml Balance 1654 ml 850 ml 960 ml 1335 ml Intake Oral 0 ml 600 ml 960 ml 720 ml IV Total 1654 ml 250 ml 615 ml # Voids 2 3 2 2 # Bowel Movements 0 2 Result Diagram: 08/29/17 0647 08/27/17 0611 Imaging Last Impressions Lumbar Spine MRI 08/27/17 0000 Signed Impressions: Service Date/Time: Sunday, August 27, 2017 16:56 - CONCLUSION: 1. Very early degenerative disc disease at the lumbosacral junction with mild disc desiccation. 2. Otherwise negative. Disc and vertebral body heights are maintained at all remaining lumbar levels. Spinal canal and neural foramina are widely patent. 3. No abscess identified. Sundeep Murphy MD Hepatobiliary Scan Nuclear Medicine 08/27/17 0000 Signed Impressions: Service Date/Time: Monday, August 28, 2017 10:06 - CONCLUSION: Biliary scan within normal limits. Tha Pedersen MD Gall Bladder Ultrasound 08/27/17 0000 Signed Impressions: Service Date/Time: Sunday, August 27, 2017 07:56 - CONCLUSION: 1. The gallbladder wall is thickened and there is small volume pericholecystic fluid but no stones, sludge, or distention of the gallbladder. The wall thickening and pericholecystic fluid can relate to venous congestion as seen with aggressive crystalloid therapy, right-sided heart failure, and hepatocellular disease. I cannot completely exclude acalculous cholecystitis. Alireza Greco Jr., MD CT Angiography 08/27/17 0000 Signed Impressions: Service Date/Time: Sunday, August 27, 2017 23:09 - CONCLUSION: No pulmonary embolus. Yimi Gaines MD Abdomen/Pelvis CT 08/26/172000 Signed Impressions: Service Date/Time: August 21:34 - CONCLUSION: 1. No evidence of bilateral Wednesday as are other acute renal abnormality. 2. Hepatomegaly with periportal edema and also trace fluid around the gallbladder. Please see above. No perceptible inflammatory changes. 3. Upper limits of normal to mildly enlarged spleen, nonspecific. 4. Apparent patchy pneumonia in the visualized right base. 5. Small fat containing umbilical hernia. Yimi Harris MD Objective Remarks AAOx3 nad ROBBIE, EOMI, anicteric sclera S1S2 RRR, no MRG Clear lungs BL abdomen is soft with hyperactive bowel movements, diffusely tender to palpation , no guarding or rebound tenderness. No edema in lower extremities Procedures none Medications and IVs Current Medications Medications (Trade) Dose Ordered Sig/Isiah Route Start Time Stop Time Status Last Admin Sodium Chloride 1,000 ml @ 100 mls/hr Q10H IV 08/26/17 23:24 08/29/17 12:06 (NS Flush) 2 ml UNSCH PRN IV FLUSH 08/26/17 23:30 (NS Flush) 2 ml BID IV FLUSH 08/27/17 09:00 08/29/17 20:35 (Tylenol) 650 mg Q4H PRN PO 08/26/17 23:30 08/27/17 13:48 (Zofran Inj) 4 mg Q6H PRN IVP 08/26/17 23:30 Pharmacy Profile Note 0 ml @ 0 mls/hr UNSCH OTHER 08/27/17 02:15 (Duoneb Neb) 1 ampule Q4HR NEB PRN NEB 08/27/17 02:30 ([place] 5-325 Mg) 1 tab Q4H PRN PO 08/27/17 14:30 ([place] 7.5-325 Mg) 1 tab Q4H PRN PO 08/27/17 14:30 08/29/17 20:35 (Narcan Inj) 0.4 mg UNSCH PRN IV PUSH 08/27/17 14:30 (Habitrol 14 Mg Patch.24 Hr) 1 patch DAILY T-DERMAL 08/27/17 23:45 08/29/17 08:45 Miscellaneous Information 1 HS T-DERMAL 08/28/17 21:00 08/29/17 20:42 Vancomycin HCl 1750 mg/Sodium Chloride 517.5 ml @ 257.5 mls/ hr Q8H IV 08/29/17 22:00 08/29/17 21:23 Miscellaneous Information SPECIFIC LAB TO BE LARY... ONCE ONCE .XX 08/30/17 21:45 08/30/17 21:46 A/P Problem List: (1) Sepsis ICD Code: A41.9 - Sepsis, unspecified organism Plan: Sepsis present on admission, patient with leukocytosis of 21.2 K, heart rate of 92 and respiratory rate of 24. WBC increasing to 31.7K and bandemia 30% on 08/27 along with toxic vacuolization. Blood cultures negative 2 Influenza A and B-. The patient has been started in IV vancomycin and IV Zosyn. ID consulted. Continue antibiotics as per ID recommendations. The patient currently on IV vancomycin and IV Zosyn. Presumed to be secondary to pneumonia, however CTA of the chest ruled out pulmonary emboli and also did not show any consolidation or pneumothorax. Patient is now having diarrhea, suspect sepsis secondary to gastroenteritis. We 'll check stool studies and C. difficile toxin PCR. 08/29 c diff negative. Diarrhea resolved. Patient is growing 2 bottles of gram positive cocci. Suspect bacteremia likely related to IV drug use. Continue IV antibiotics. 2 D echo negative for vegetation. (2) Diarrhea ICD Code: R19.7 - Diarrhea, unspecified Plan: Patient recently was prescribed azithromycin for an upper respiratory infection. We'll check stool studies and C. difficile toxin PCR. 08/29 C diff negative. Diarrhea resolved. (3) Heroin abuse ICD Code: F11.10 - Opioid abuse, uncomplicated Plan: Advised cessation. (4) Transaminitis ICD Code: R74.0 - Nonspecific elevation of levels of transaminase and lactic acid dehydrogenase [LDH] Plan: On admission patient had elevated transaminases with an ALT of 163 and an AST of 277 with normal urobilinogen of 0.7. Patient has history of hepatitis C. CT abdomen and pelvis did not show any renal abnormalities. Showed hepatomegaly with periportal edema and trace fluid around the gallbladder. Upper limits of normal to mildly enlarged spleen. Apparent patchy pneumonia in the visualized right base. CTA of the chest ruled out pulmonary emboli and also did not show any consolidation or pneumothorax. Transaminases are trending down. (5) Tobacco abuse ICD Code: Z72.0 - Tobacco use Plan: Advised tobacco cessation. On nicotine patch. (6) Abdominal pain ICD Code: R10.9 - Unspecified abdominal pain (7) Hypokalemia ICD Code: E87.6 - Hypokalemia Status: Acute Plan: Due to to GI loss. Replace orally and continue to monitor BMP. Replace as needed. Assessment and Plan DVT prophylaxis: SCDs. Discharge Planning Continue to monitor in the medical floor. Problem Qualifiers (1) Sepsis: Qualified Codes: A41.9 - Sepsis, unspecified organism (2) Diarrhea: Qualified Codes: R19.7 - Diarrhea, unspecified (3) Abdominal pain: Qualified Codes: R10.84 - Generalized abdominal pain Antony Winston MD Aug 29, 2017 16:49
[2017-08-29] MEDS: REMOVE OLD PATCH T-DERMAL SCH (20:42)
[2017-08-29] MEDS: VANCOMYCIN INJ 1,750 MG in SODIUM CHLORID 0.9% 500 ML INJ 500 ML IV SCH (21:23)
[2017-08-30 00:59] VITALS: BP 120/82; PULSE 78; RESP 18; TEMP 96.9; O2SAT 96
[2017-08-30 03:20] VITALS: BP 118/69; PULSE 60; RESP 18; TEMP 97.3; O2SAT 96
[2017-08-30 03:36] VITALS: PULSE 54
[2017-08-30] MEDS: ACETAMINOPHEN/HYDROcodone 325 MG/7.5 MG TAB PO PRN ×4 (05:03→16:42)
[2017-08-30] MEDS: VANCOMYCIN INJ 1,750 MG in SODIUM CHLORID 0.9% 500 ML INJ 500 ML IV SCH (06:08)
[2017-08-30] MEDS: SODIUM CHLOR 0.9% 1000 ML INJ 1,000 ML IV SCH (07:24)
[2017-08-30 08:00] VITALS: BP 122/84; PULSE 63; RESP 18; TEMP 97; O2SAT 98
[2017-08-30] MEDS: NICOTINE 14 MG/24 HR PATCH T-DERMAL SCH (08:43)
[2017-08-30] MEDS: SODIUM CHLORIDE 0.9% FLUSH 10 ML FLUSH IV FLUSH SCH (08:46)
[2017-08-30 08:56] LABS: AUTOMATED NEUTROPHIL # 6.9 TH/MM3 (1.8-7.7); BASOPHIL # 0.1 TH/MM3 (0-0.2); BASOPHIL % 1.2 % (0.0-2.0); EOSINOPHIL # 0.6 TH/MM3 (0-0.4); EOSINOPHIL % 5.6 % (0.0-4.0); HEMATOCRIT 40.1 % (39.0-51.0); HEMOGLOBIN 13.8 GM/DL (13.0-17.0); LYMPH % 24.8 % (9.0-44.0); LYMPHOCYTE # 2.7 TH/MM3 (1.0-4.8); MEAN CELL VOLUME 84.1 FL (80.0-100.0); MEAN CORPUSCULAR HGB CONC 34.5 % (32.0-36.0); MEAN PLATELET VOLUME 9.4 FL (7.0-11.0); MONO % 5.8 % (0.0-8.0); MONOCYTE # 0.6 TH/MM3 (0-0.9); NEUT % 62.6 % (16.0-70.0); PLATELET COUNT 261 TH/MM3 (150-450); RED BLOOD COUNT 4.77 MIL/MM3 (4.50-5.90); RED CELL DISTRIBUTION WIDTH 13.3 % (11.6-17.2)
[2017-08-30 09:23] LABS: BICARBONATE 26.4 MEQ/L (21.0-32.0); CALCIUM 8.9 MG/DL (8.5-10.1); CREATININE 0.8 MG/DL (0.60-1.30)
[2017-08-30 13:29] VITALS: O2SAT 97
--- NOTE | 2017-08-30 15:53 | HHI.PR ---
cc: Syed Ahn MD Subjective Subjective Notes Ambulating in room Resolution of RUQ pain Objective Vitals/I&O Vital Signs Date Time Temp Pulse Resp B/P (MAP) Pulse Ox O2 Delivery O2 Flow Rate FiO2 08/30/17 13:29 97 08/30/17 08:00 97.0 63 18 122/84 (97) 08/27/17 13:18 Room Air Labs Laboratory Tests Test 08/30/17 07:50 White Blood Count 11.0 Red Blood Count 4.77 Hemoglobin 13.8 Hematocrit 40.1 Mean Corpuscular Volume 84.1 Mean Corpuscular Hemoglobin 29.0 Mean Corpuscular Hemoglobin Concent 34.5 Red Cell Distribution Width 13.3 Platelet Count 261 Mean Platelet Volume 9.4 Neutrophils (%) (Auto) 62.6 Lymphocytes (%) (Auto) 24.8 Monocytes (%) (Auto) 5.8 Eosinophils (%) (Auto) 5.6 Basophils (%) (Auto) 1.2 Neutrophils # (Auto) 6.9 Lymphocytes # (Auto) 2.7 Monocytes # (Auto) 0.6 Eosinophils # (Auto) 0.6 Basophils # (Auto) 0.1 CBC Comment DIFF FINAL Differential Comment Blood Urea Nitrogen 7 Creatinine 0.80 Random Glucose 82 Calcium Level 8.9 Magnesium Level 2.0 Sodium Level 138 Potassium Level 3.9 Chloride Level 106 Carbon Dioxide Level 26.4 Anion Gap 6 Estimat Glomerular Filtration Rate 117 Date/Time Source Procedure Growth Status 08/30/17 13:50 Blood Peripheral Aerobic Blood Culture Pending Received 08/30/17 13:50 Blood Peripheral Anaerobic Blood Culture Pending Received 08/29/17 08:50 Stool Stool - Final NO ENTERIC PATHOGENS DETECTED BY PCR... Complete 08/27/17 09:20 Nasal Washing Influenza Types A,B Antigen (CLAUDINE) - Final NEGATIVE FOR FLU A AND B ANTIGEN.... Complete Cardiovascular: Regular Lungs: Clear Abdomen: Non-distended, Non-tender Extremities: No edema A/P Assessment and Plan 27 year old male with RUQ; ? etiology gallbladder -HIDA normal -Follow hepatitis panel -Resolution of RUQ pain; no etiology to gallbladder -GS will sign off Kimberley Tomas Aug 30, 2017 15:52
--- NOTE | 2017-08-30 15:53 | HHI.IDPN ---
Subjective Subjective Remarks Doing well afebrile Blood clx growing diff org, coag neg staph (possible 2 different) in 1 sert and anaerobic GPC in other WBC wnl resolved abd pain Antibiotics vanco Allergies: Coded Allergies: No Known Allergies (Verified Adverse Reaction, Unknown, 08/26/17) Objective . Vital Signs Date Time Temp Pulse Resp B/P (MAP) Pulse Ox O2 Delivery O2 Flow Rate FiO2 08/30/17 13:29 97 08/30/17 08:00 97.0 63 18 122/84 (97) 98 08/30/17 03:36 54 08/30/17 03:20 97.3 60 18 118/69 (85) 96 08/30/17 00:59 96.9 78 18 120/82 (95) 96 08/29/17 23:56 54 08/29/17 21:23 97.4 70 18 137/71 (93) 98 08/29/17 18:00 88 08/29/17 16:00 96.7 60 18 117/63 (81) 98 . Laboratory Tests Test 08/29/17 06:47 08/30/17 07:50 White Blood Count 8.6 TH/MM3 11.0 TH/MM3 Red Blood Count 4.64 MIL/MM3 4.77 MIL/MM3 Hemoglobin 13.4 GM/DL 13.8 GM/DL Hematocrit 39.4 % 40.1 % Mean Corpuscular Volume 84.9 FL 84.1 FL Mean Corpuscular Hemoglobin 28.9 PG 29.0 PG Mean Corpuscular Hemoglobin Concent 34.0 % 34.5 % Red Cell Distribution Width 13.3 % 13.3 % Platelet Count 236 TH/MM3 261 TH/MM3 Mean Platelet Volume 9.2 FL 9.4 FL Neutrophils (%) (Auto) 61.9 % 62.6 % Lymphocytes (%) (Auto) 24.4 % 24.8 % Monocytes (%) (Auto) 6.7 % 5.8 % Eosinophils (%) (Auto) 6.2 % 5.6 % Basophils (%) (Auto) 0.8 % 1.2 % Neutrophils # (Auto) 5.3 TH/MM3 6.9 TH/MM3 Lymphocytes # (Auto) 2.1 TH/MM3 2.7 TH/MM3 Monocytes # (Auto) 0.6 TH/MM3 0.6 TH/MM3 Eosinophils # (Auto) 0.5 TH/MM3 0.6 TH/MM3 Basophils # (Auto) 0.1 TH/MM3 0.1 TH/MM3 CBC Comment DIFF FINAL DIFF FINAL Differential Comment Laboratory Tests Test 08/30/17 07:50 Blood Urea Nitrogen 7 MG/DL Creatinine 0.80 MG/DL Random Glucose 82 MG/DL Calcium Level 8.9 MG/DL Magnesium Level 2.0 MG/DL Sodium Level 138 MEQ/L Potassium Level 3.9 MEQ/L Chloride Level 106 MEQ/L Carbon Dioxide Level 26.4 MEQ/L Anion Gap 6 MEQ/L Estimat Glomerular Filtration Rate 117 ML/MIN Microbiology Date/Time Source Procedure Growth Status 08/30/17 13:50 Blood Peripheral Aerobic Blood Culture Pending Received 08/30/17 13:50 Blood Peripheral Anaerobic Blood Culture Pending Received 08/30/17 13:43 Blood Peripheral Aerobic Blood Culture Pending Received 08/30/17 13:43 Blood Peripheral Anaerobic Blood Culture Pending Received 08/29/17 08:50 Stool Stool - Final NO ENTERIC PATHOGENS DETECTED BY PCR... Complete 08/29/17 08:50 Stool Stool Cryptosporidium Exam - Final NEGATIVE - NO CRYPTOSPORIDIUM ANTIGEN... Complete 08/29/17 08:50 Stool Stool Stool Pus (CLAUDINE) - Final RARE WBC Complete 08/29/17 08:50 Stool Stool Giardia Antigen (CLAUDINE) - Final NEGATIVE - NO GIARDIA ANTIGEN DETECTE... Complete Imaging Last Impressions Lumbar Spine MRI 08/27/17 0000 Signed Impressions: Service Date/Time: Sunday, August 27, 2017 16:56 - CONCLUSION: 1. Very early degenerative disc disease at the lumbosacral junction with mild disc desiccation. 2. Otherwise negative. Disc and vertebral body heights are maintained at all remaining lumbar levels. Spinal canal and neural foramina are widely patent. 3. No abscess identified. Sundeep Murphy MD Hepatobiliary Scan Nuclear Medicine 08/27/17 0000 Signed Impressions: Service Date/Time: Monday, August 28, 2017 10:06 - CONCLUSION: Biliary scan within normal limits. Tha Pedersen MD Gall Bladder Ultrasound 08/27/17 0000 Signed Impressions: Service Date/Time: Sunday, August 27, 2017 07:56 - CONCLUSION: 1. The gallbladder wall is thickened and there is small volume pericholecystic fluid but no stones, sludge, or distention of the gallbladder. The wall thickening and pericholecystic fluid can relate to venous congestion as seen with aggressive crystalloid therapy, right-sided heart failure, and hepatocellular disease. I cannot completely exclude acalculous cholecystitis. Alireza Greco Jr., MD CT Angiography 08/27/17 0000 Signed Impressions: Service Date/Time: Sunday, August 27, 2017 23:09 - CONCLUSION: No pulmonary embolus. Yimi Gaines MD Abdomen/Pelvis CT 08/26/172000 Signed Impressions: Service Date/Time: August 21:34 - CONCLUSION: 1. No evidence of bilateral Wednesday as are other acute renal abnormality. 2. Hepatomegaly with periportal edema and also trace fluid around the gallbladder. Please see above. No perceptible inflammatory changes. 3. Upper limits of normal to mildly enlarged spleen, nonspecific. 4. Apparent patchy pneumonia in the visualized right base. 5. Small fat containing umbilical hernia. Yimi Harris MD Physical Exam CONSTITUTIONAL/GENERAL: This is an adequately nourished patient, in no apparent distress. TUBES/LINES/DRAINS: SKIN: No jaundice, rashes, or lesions. + B/L a/c areas niddle arboleda. Skin temperature appropriate. Not diaphoretic. CARDIOVASCULAR: Regular rate and rhythm without murmurs, gallops, or rubs. No JVD. Peripheral pulses symmetric. RESPIRATORY/CHEST: Symmetric, unlabored respirations. Clear to auscultation. Breath sounds equal bilaterally. No wheezes, rales, or rhonchi. GASTROINTESTINAL: Abdomen soft, non-tender, nondistended. No hepato-splenomegaly , or palpable masses. No guarding. Bowel sounds present. MUSCULOSKELETAL: Extremities without clubbing, cyanosis, or edema. No joint tenderness or effusion noted. No calf tenderness. No mottling or clubbing. Mild edema RUE cw IV infiltrateion NEUROLOGICAL: Awake and alert. Motor and sensory grossly within normal limits. Follows commands. Clear speech . Moves all extremities. PSYCHIATRIC: No obvious anxiety/depression. no apparent hallucinations or other psychotic thought process. Assessment & Plan Remarks New onset lower back pain in seting of IVDU-er - No e/o diskitis, osteomyelitis, or epuidural abscess on MRI Leukocytosis, bandemia - leukemoid reaction: resolved Doubt cholecystitis - HIDA wnl Bactremia, different isolates. Doubt clinical significance stop abx dc vanco OK to dc prt home Dw Keisha Reyna MD Aug 30, 2017 15:53
--- NOTE | 2017-08-30 16:33 | HHI.DCPOC ---
Discharge Care Plan Diagnosis: (1) Hepatitis C (2) Substance dependence (3) Hypokalemia (4) Diarrhea (5) Tobacco abuse (6) Sepsis (7) Abdominal pain (8) Heroin abuse (9) Transaminitis Goals to Promote Your Health * To prevent worsening of your condition and complications * To maintain your health at the optimal level Directions to Meet Your Goals Take your medications as prescribed Follow your dietary instruction Follow activity as directed Keep your appointments as scheduled Take your immunizations and boosters as scheduled If your symptoms worsen call your PCP, if no PCP go to Urgent Care Center or Emergency Room Smoking is Dangerous to Your Health. Avoid second hand smoke Call the 24-hour hour crisis hotline for domestic abuse at Antony Winston MD Aug 30, 2017 16:33
--- NOTE | 2017-08-30 16:38 | HHI.DS ---
Discharge Summary Admission Date Aug 26, 2017 at 22:51 Discharge Date: Aug 30, 2017 Admitting Diagnosis Septic Embolic vs R lung base pneumonia (1) Sepsis ICD Code: A41.9 - Sepsis, unspecified organism (2) Diarrhea ICD Code: R19.7 - Diarrhea, unspecified (3) Heroin abuse ICD Code: F11.10 - Opioid abuse, uncomplicated (4) Transaminitis ICD Code: R74.0 - Nonspecific elevation of levels of transaminase and lactic acid dehydrogenase [LDH] (5) Tobacco abuse ICD Code: Z72.0 - Tobacco use (6) Abdominal pain ICD Code: R10.9 - Unspecified abdominal pain (7) Hypokalemia ICD Code: E87.6 - Hypokalemia Status: Acute Procedures none Brief History - From Admission 27 y/o male with a history of IV heroin drug abuse, asthma, and bipolar disorder presented to the ED for evaluation of severe low back pain. The patient reports that his "lungs were on fire" and he had "kidney pain". He states his symptoms started today and were accompanied by fever/chills. He denies sore throat, cough. Denies chest pain with the exception of "lung pain" on deep inspiration. Denies nausea/vomiting. Vital signs: Temperature 98.4, pulse 92, respirations 24, BP 162/84, pulse ox 99% on room air. . CBC/BMP: 08/30/17 0750 08/30/17 0750 Significant Findings Laboratory Tests Test 08/27/17 18:15 08/28/17 07:41 08/28/17 12:18 08/29/17 06:47 Iron Level 52 MCG/DL (65-175) Percent Iron Saturation 18.9 % (20-50) Hepatitis C Antibody REACTIVE (NEGATIVE) Aspartate Amino Transf (AST/SGOT) 43 U/L (15-37) Alanine Aminotransferase (ALT/SGPT) 104 U/L (12-78) Albumin 2.7 GM/DL (3.4-5.0) Vancomycin Level Trough 1.7 MCG/ML (5.0-10.0) Eosinophils (%) (Auto) 6.2 % (0.0-4.0) Eosinophils # (Auto) 0.5 TH/MM3 (0-0.4) Test 08/29/17 08:50 08/29/17 12:45 08/30/17 07:50 Eosinophils (%) (Auto) 5.6 % (0.0-4.0) Eosinophils # (Auto) 0.6 TH/MM3 (0-0.4) Imaging Last Impressions Lumbar Spine MRI 08/27/17 Signed Impressions: Service Date/Time: Sunday, August 27, 2017 16:56 - CONCLUSION: 1. Very early degenerative disc disease at the lumbosacral junction with mild disc desiccation. 2. Otherwise negative. Disc and vertebral body heights are maintained at all remaining lumbar levels. Spinal canal and neural foramina are widely patent. 3. No abscess identified. Sundeep Murphy MD Hepatobiliary Scan Nuclear Medicine 08/27/17 Signed Impressions: Service Date/Time: Monday, August 28, 2017 10:06 - CONCLUSION: Biliary scan within normal limits. Tha Pedersen MD Gall Bladder Ultrasound 08/27/17 Signed Impressions: Service Date/Time: Sunday, August 27, 2017 07:56 - CONCLUSION: 1. The gallbladder wall is thickened and there is small volume pericholecystic fluid but no stones, sludge, or distention of the gallbladder. The wall thickening and pericholecystic fluid can relate to venous congestion as seen with aggressive crystalloid therapy, right-sided heart failure, and hepatocellular disease. I cannot completely exclude acalculous cholecystitis. Alireza Greco Jr., MD CT Angiography 08/27/17 Signed Impressions: Service Date/Time: Sunday, August 27, 2017 23:09 - CONCLUSION: No pulmonary embolus. Yimi Gaines MD Abdomen/Pelvis CT 08/26/172000 Signed Impressions: Service Date/Time: August 21:34 - CONCLUSION: 1. No evidence of bilateral Wednesday as are other acute renal abnormality. 2. Hepatomegaly with periportal edema and also trace fluid around the gallbladder. Please see above. No perceptible inflammatory changes. 3. Upper limits of normal to mildly enlarged spleen, nonspecific. 4. Apparent patchy pneumonia in the visualized right base. 5. Small fat containing umbilical hernia. Yimi Harris MD PE at Discharge AAOx3 nad ROBBIE, EOMI, anicteric sclera S1S2 RRR, no MRG Clear lungs BL abdomen is soft with hyperactive bowel movements, diffusely tender to palpation , no guarding or rebound tenderness. No edema in lower extremities Pt Condition on Discharge: Stable Discharge Disposition: Discharge Home Discharge Time: <= 30 minutes Discharge Instructions DIET: Follow Instructions for: As Tolerated, No Restrictions Activities you can perform: Regular-No Restrictions Follow up Referrals: PCP Follow-up - 2 Weeks Discontinued Medications: Azithromycin (Azithromycin) 500 Mg Tab 500 MG PO DAILY for Infection, #5 TAB 0 Refills Prednisone (Deltasone) 20 Mg Tab 20 MG PO BID, #60 TAB 0 Refills Antony Winston MD Aug 30, 2017 16:38
--- NOTE | 2017-08-30 19:15 | EKG ---
Date Performed: 08/30/2017 Time Performed: 04:44:48 PTAGE: 27 years EKG: SINUS BRADYCARDIA WITH MARKED SINUS ARRHYTHMIA Since previous tracing, no significant johansen e noted BORDERLINE ECG PREVIOUS TRACING : 08/26/2017 20.24.30 DOCTOR: Wander Hogue Interpretating Date/Time 08/30/2017 19:13:53
[2017-08-30] MEDS ORDERED: PHARMACY ORDERED LAB ONE (21:45)
== END 2017-08-30 17:01 | disposition home or self-care (01) | DRG 872 ==
LOC: NEPD 18:10 → NEDA 22:51 → N06B 08-27 13:28
PROVIDERS: ADMIT Hospitalist; ATTEND Hospitalist
DX: A41.9 Sepsis, unspecified organism (principal); F11.10 Opioid abuse, uncomplicated; R19.7 Diarrhea, unspecified; M54.5 Low back pain; R74.0 Nonspecific elevation of levels of transaminase and lactic acid dehydrogenase [LDH]; E87.6 Hypokalemia; J45.909 Unspecified asthma, uncomplicated; F31.9 Bipolar disorder, unspecified; B19.20 Unspecified viral hepatitis C without hepatic coma; D64.9 Anemia, unspecified; F17.210 Nicotine dependence, cigarettes, uncomplicated
CPT/HCPCS: 71275; 72158; 74177; 76705; 78227; 80048; 80053; 80074; 80076; 80202; 81001; 82103; 82105; 82390; 82550; 82728; 83520; 83540; 83550; 83605; 83690; 83735; 83880; 85007; 85025; 85027; 85379; 85610; 86038; 86255; 86403; 86803; 87040; 87185; 87205; 87328; 87329; 87493; 87506; 87522; 87804; 87902; 93005; 93306; 96361; 96365; 96366; 96375; A9537; A9579; J1885; J2543; J2805; J3370; J7030; J7040; J7050; Q9967

== ENCOUNTER 2017-10-18 19:03 | Emergency (ER) | payer OTHER ==
[2017-10-18 19:26] VITALS: BP 167/100; PULSE 100; RESP 20; TEMP 97.8; O2SAT 98
[2017-10-18 19:46] VITALS: BP 148/98; PULSE 85; RESP 18; O2SAT 98
--- NOTE | 2017-10-18 19:48 | PD ---
HPI Chief Complaint: Alcohol/Drug Intoxication Time Seen by Provider: 19:37 Travel History International Travel<30 days: No Contact w/Intl Traveler<30days: No Traveled to known affect area: No History of Present Illness HPI 27-year-old male with history of IV heroin abuse presents under [place] act initiated by the Police Department. The patient was seen running in the road several times and seemed to be pulling his pants down the road. He admitted to the police to using heroin and thus he was brought here for evaluation. He reports that he used some heroin today at a friend's house and then as he was walking home the police saw him and brought him here. He says that he was not pulling his pants down he was trying to adjust his belt. He says that he is hungry and thirsty because he has been working a lot and did not really eat much today. 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 Denies chest pain, shortness of breath, denies any injury, denies headache, abdominal pain, nausea or vomiting. PFSH Past Medical History ADHD: Yes Arthritis: No Asthma: Yes (CHILDHOOD) Autoimmune Disease: No Bipolar Disorder: Yes Anxiety: No Depression: No Heart Rhythm Problems: No Cancer: No Cardiovascular Problems: No Chemotherapy: No Chest Pain: No Congestive Heart Failure: No COPD: No Cerebrovascular Accident: No Diabetes: No Diminished Hearing: No Endocrine: No GERD: No Genitourinary: No Hiatal Hernia: No Immune Disorder: No Kidney Stones: No Musculoskeletal: No Neurologic: No Psychiatric: No Reproductive: No Respiratory: Yes (ASTHMA) Immunizations Current: Yes Migraines: No Radiation Therapy: No Renal Failure: No Seizures: No Sickle Cell Disease: No Thyroid Disease: No Ulcer: No ?: Not Past Surgical History Abdominal Surgery: No AICD: No Cardiac Surgery: No Genitourinary Surgery: No Gynecologic Surgery: No Pacemaker: No Thoracic Surgery: No Social History Alcohol Use: Yes (OCCASIONALLY) Tobacco Use: Yes (1 ppd) Substance Use: Yes ( herion iv, occ. cocaine; DENIES ON THIS VISIT) Allergies-Medications (Allergen,Severity, Reaction): Coded Allergies: No Known Allergies (Verified Adverse Reaction, Unknown, 08/26/17) Reported Meds & Prescriptions Reported Meds & Active Scripts Active No Active Prescriptions or Reported Medications Review of Systems Except as stated in HPI: all other systems reviewed are Neg Physical Exam Narrative GENERAL: Somewhat disheveled young male in no acute distress, acting little bit erratically initially but responds to questions and commands appropriately. SKIN: Warm and dry. Needle track arboleda noted in the left antecubital region. HEAD: Atraumatic. Normocephalic. EYES: Pupils equal and round. No scleral icterus. No injection or drainage. ENT: No nasal bleeding or discharge. Mucous membranes pink and moist. NECK: Trachea midline. No JVD. CARDIOVASCULAR: Regular rate and rhythm. No murmur appreciated. RESPIRATORY: No accessory muscle use. Clear to auscultation. Breath sounds equal bilaterally. GASTROINTESTINAL: Abdomen soft, non-tender, nondistended. Hepatic and splenic margins not palpable. MUSCULOSKELETAL: No obvious deformities. No clubbing. No cyanosis. No edema. NEUROLOGICAL: Awake and alert. No obvious cranial nerve deficits. Motor grossly within normal limits. Normal speech. Data Data Last Documented VS Vital Signs Date Time Temp Pulse Resp B/P (MAP) Pulse Ox O2 Delivery O2 Flow Rate FiO2 10/19/17 00:07 68 18 131/76 (94) 100 10/18/17 19:26 97.8 [facility] Medical Decision Making Medical Screen Exam Complete: Yes Emergency Medical Condition: Yes Medical Record Reviewed: Yes Differential Diagnosis Heroin abuse, substance-induced mood disorder, acute psychosis Narrative Course 27-year-old male presents under [place] act after acting bizarrely shortly after using IV heroin. The patient will be given enteral nourishment. He will remain here until he is appropriate for discharge. Diagnosis Primary Impression: Heroin abuse Med/Other Pt SpecificInfo: No Change to Meds Scripts No Active Prescriptions or Reported Meds Disposition: 01 DISCHARGE HOME Condition: Stable Og Grubbs Oct 18, 2017 19:48
[2017-10-19 00:07] VITALS: BP 131/76; PULSE 68; RESP 18; O2SAT 100
== END 2017-10-19 06:32 | disposition home or self-care (01) ==
LOC: NEPD 19:03 → NEDAMB 10-19 06:32
DX: F11.10 Opioid abuse, uncomplicated (principal); F90.9 Attention-deficit hyperactivity disorder, unspecified type; J45.909 Unspecified asthma, uncomplicated; F31.9 Bipolar disorder, unspecified; F17.200 Nicotine dependence, unspecified, uncomplicated
CPT/HCPCS: 99283

== ENCOUNTER 2018-03-01 04:26 | Observation (INO) ==
[2018-03-01] MEDS ORDERED: Piperacil/Tazo 3.375 GM Premix 50 ML IV.SIG ONE (06:48)
[2018-03-01] MEDS ORDERED: Sod Chloride 0.9% Inj 1,000 ML IV.SIG ONE (06:48)
[2018-03-01] MEDS ORDERED: Vancomycin Inj 1 GM/200 ML PIGGYBACK IV.SIG ONE (06:48)
--- NOTE | 2018-03-01 06:57 | ED ---
HPI General Chief complaint: Skin/Abscess/Foreign Body Stated complaint: Facial injury/Leg & feet pain Time Seen by Provider: 03/01/18 06:30 Source: patient Limitations: no limitations History of Present Illness HPI narrative: The patient is a 28 year old male who presents to the [facility] emergency department with a history of swelling to his face and bilateral feet that began on Wednesday. The patient denies any injury associated with this. He reports that he does have some open wounds on his skin related to spending a lot of time outdoors. He reports that he has multiple cuts on bilateral hands related to clearing trees on Wednesday a week ago. The patient reports that he also uses IV drugs. His last IV drug use was yesterday. He reports that he uses heroin. The patient reports having a history of hepatitis C. He denies any prior history of HIV. He denies any prior history of endocarditis. The patient reports that he has wounds on his feet related to ant bites. He denies having any chest pain, chest pressure, or shortness of breath. He denies having any fevers or chills. He denies having any nausea, vomiting, or diarrhea. On review of systems otherwise, the patient denies having any cough, congestion, neck pain, abdominal pain, urinary symptoms, or neurologic symptoms. Related Data Home Medications Medication Instructions Recorded Confirmed No Known Home Medications 03/01/18 03/01/18 Allergies Allergy/AdvReac Type Severity Reaction Status Date / Time No Known Allergies Allergy Unverified 03/01/18 06:28 Review of Systems ROS Unobtainable All other systems reviewed negative except as stated in HPI Constitutional Denies fever(s) Eyes Denies change in vision ENT Denies headache(s) and Denies nasal congestion Cardiovascular Denies chest pain and Reports edema Respiratory Denies dyspnea Gastrointestinal Denies abdominal pain Genitourinary Denies difficulty urinating Musculoskeletal Reports myalgias Integumentary/Breasts Reports rash and Reports skin swelling Neurologic Denies headache(s) Psychiatric Denies depression Endocrine Denies polyuria Hematologic/Lymphatic Denies easy bruising PMFSH History History Provided By: Patient Medical History Medical History Hepatitis C (Acute) IVDU (intravenous drug user) (Acute) Septic embolism (Acute) Surgical History Surgical History No history of previous surgery (Acute) Family History Family History Other Patient denies medical problems Social History Social History Substance History: Active Abuse Second Hand Smoke Exposure: No Smoking Status: Current every day smoker Tobacco Type: Cigarettes How Often Do You Have a Drink Containing Alcohol: Never Recent Travel in [place] within the Last 8 Weeks: No Recent Out of Country Travel within the Last 8 Weeks: No Substance Abuse Detail Heroin: Substance Use Status: Active Immunization History Tetanus Immunization: Unsure Hx Influenza Vaccine This Season: No Exam Const General: cooperative, no acute distress and well developed Nutritional Appearance: well nourished Orientation: alert, awake and oriented x3 HENMT Head: normocephalic, atraumatic and other (The patient has swelling this is a left-sided patient's face along left lower cheek, with tenderness on palpation and pointing noted. There is no crepitus. No submandibular swelling.) Nose: no nasal discharge and no epistaxis Mouth: oral mucosae normal and moist mucous membranes Teeth and gingiva: dentition normal and other (No swelling underneath the patient's tongue.) Throat: posterior oropharynx normal Eyes Sclera: normal sclerae Pupils: PERRL Neck Neck: no meningeal signs, trachea midline and no JVD Resp Effort & Inspection: no use of accessory muscles Auscultation: clear to auscultation bilaterally Cardio Rate: regular rate Rhythm: regular rhythm Heart Sounds: no murmurs and no rubs GI Inspection: non-distended Palpation: soft, no hepatosplenomegaly and nontender Skin General: dry skin (warm) Lesions: lesion noted (On the patient's hands, palms of the hands the patient is noted to have superficial abrasions that are starting to heal, scattered superficial splinters from recent tree work. No splinter hemorrhages. No Janeway lesions. Patient on examination of his feet is noted to have a few pustules between the toes, vesicle formation along the medial aspect of the left great toe. He reports that he has had ant bites to his feet. The patient has discoloration to the top of his feet related to staining from blue shoes.) Neuro General: alert and awake Cranial Nerves: other (No facial asymmetry.) Speech: speech normal Motor: no movement abnormalities noted Extrem General: normal to inspection, no clubbing, no cyanosis and edema Laterality: bilaterally Psych Mood: congruent mood Affect: normal affect Judgment: judgment good Course Consultations Consultation #1: dr goldman agrees to admit Initial Documented Vital Signs Temperature 98.3 F 03/01/18 04:31 Pulse Rate 71 03/01/18 04:31 Respiratory Rate 17 03/01/18 04:31 Blood Pressure 149/73 H 03/01/18 04:31 Pulse Oximetry 100 03/01/18 04:31 Last Documented Vital Signs Temperature 98.6 F 03/01/18 15:41 Pulse Rate 73 03/01/18 15:41 Respiratory Rate 18 03/01/18 15:41 Blood Pressure 134/58 L 03/01/18 15:41 Pulse Oximetry 98 03/01/18 15:41 Sign Out Sign Out Data: Patient Sign Out occurred on 03/01/18 at 09:21. Patient's care was discussed, and care was transferred from Kerry Ibarra MD to Berenice Mcdermott MD. Sign Out Comment: The patient's case was checked out to the oncoming emergency physician. Laboratory studies, imaging studies are pending at the conclusion of my shift. The patient's disposition is pending at the conclusion of the patient's workup and reassessment by the oncoming physician. Last updated by Kerry Ibarra MD at 03/01/18 07:09 Post-Handoff Eval: Patient signed over to me to follow workup and admit. Workup reveals facial cellulitis in setting of IV drug abuser. Patient updated and agrees to admission Medical Decision Making MDM Narrative Medical decision making narrative: During the course of the patient's emergency department visit, the patient's history, examination, and differential diagnosis were reviewed with the patient. The patient was placed on a rn cardiac cath with oximetry and frequent blood pressure monitoring. The patient had IV access obtained and blood work sent for analysis. Diagnostic evaluation was started. A sepsis workup was started. Blood cultures 2 were drawn. Lactic acid was sent for analysis. The patient was initially provided normal saline 1 L IV fluid bolus, Zosyn 3.375 g IV, vancomycin 1 g IV. Laboratories and imaging studies are pending at the conclusion of my shift. The patient's case will be checked out to the oncoming emergency physician to disposition the patient based on the conclusion of his workup. Lab Data Result diagrams: 03/01/18 06:50 03/01/18 06:50 Lab Results 03/01/18 03/01/18 03/01/18 Range/Units 06:50 06:50 06:50 WBC (4.0-11.0) th/mm3 RBC (4.50-5.90) mil/mm3 Hgb (13.0-17.0) gm/dL Hct (39.0-51.0) % MCV (80.0-100.0) fL MCH (27.0-34.0) pg MCHC (32.0-36.0) % RDW (11.6-17.2) % Plt Count (150-450) th/mm3 MPV (7.0-11.0) fL Neut % (Auto) (16.0-70.0) % Lymph % (Auto) (9.0-44.0) % George % (Auto) (0.0-8.0) % Eos % (Auto) (0.0-4.0) % Baso % (Auto) (0.0-2.0) % Neut # (Auto) (1.8-7.7) th/mm3 Lymph # (Auto) (1.0-4.8) th/mm3 George # (Auto) (0.0-0.9) th/mm3 Eos # (Auto) (0.0-0.4) th/mm3 Baso # (Auto) (0.0-0.2) th/mm3 WBC Differential Differential Comment ESR 8 (0-15) mm/hr PT 10.0 (9.8-11.6) sec INR 1.0 Ratio APTT 27.1 (24.3-30.1) sec Sodium (136-145) meq/L Potassium (3.5-5.1) meq/L Chloride (98-107) meq/L Carbon Dioxide (21.0-32.0) meq/L Anion Gap (5-15) meq/L BUN (7-18) mg/dL Creatinine (0.60-1.30) mg/dL Estimated GFR (>89) mL/min Random Glucose (74-106) mg/dL Lactic Acid (0.4-2.0) mmol/L Calcium (8.5-10.1) mg/dL Magnesium 2.2 (1.5-2.5) mg/dL Total Bilirubin (0.2-1.0) mg/dL AST (15-37) U/L ALT (12-78) U/L Alkaline Phosphatase (45-117) U/L C-Reactive Protein 2.86 H (0.00-0.30) mg/dL Total Protein (6.4-8.2) g/dL Albumin (3.4-5.0) g/dL Lipase 59 L (73-393) U/L Urine Color (Yellw/Straw) Urine Clarity (Clear) Urine pH (5.0-8.5) Ur Specific [place] (1.002-1.035) Urine Protein (Neg-Trace) mg/dL Urine Glucose (UA) (Negative) mg/dL Urine Ketones (Negative) mg/dL Urine Occult Blood (Negative) Urine Nitrate (Negative) Urine Bilirubin (Negative) Urine Urobilinogen (Less than 2) mg/dL Ur Leukocyte Esterase (Negative) Urine WBC (0-5) /hpf Ur Squamous Epith Cells (0-5) /hpf Micro UA Comment Urine Culture Comments 03/01/18 03/01/18 03/01/18 Range/Units 06:50 06:50 06:50 WBC 11.4 H (4.0-11.0) th/mm3 RBC 4.62 (4.50-5.90) mil/mm3 Hgb 13.3 (13.0-17.0) gm/dL Hct 39.2 (39.0-51.0) % MCV 84.9 (80.0-100.0) fL MCH 28.7 (27.0-34.0) pg MCHC 33.8 (32.0-36.0) % RDW 14.1 (11.6-17.2) % Plt Count 231 (150-450) th/mm3 MPV 9.3 (7.0-11.0) fL Neut % (Auto) 70.5 H (16.0-70.0) % Lymph % (Auto) 15.5 (9.0-44.0) % George % (Auto) 7.9 (0.0-8.0) % Eos % (Auto) 5.7 H (0.0-4.0) % Baso % (Auto) 0.4 (0.0-2.0) % Neut # (Auto) 8.0 H (1.8-7.7) th/mm3 Lymph # (Auto) 1.8 (1.0-4.8) th/mm3 George # (Auto) 0.9 (0.0-0.9) th/mm3 Eos # (Auto) 0.6 H (0.0-0.4) th/mm3 Baso # (Auto) 0.0 (0.0-0.2) th/mm3 WBC Differential . Differential Comment Auto diff final ESR (0-15) mm/hr PT (9.8-11.6) sec INR Ratio APTT (24.3-30.1) sec Sodium 140 (136-145) meq/L Potassium 3.7 (3.5-5.1) meq/L Chloride 105 (98-107) meq/L Carbon Dioxide 29.7 (21.0-32.0) meq/L Anion Gap 5 (5-15) meq/L BUN 6 L (7-18) mg/dL Creatinine 0.71 (0.60-1.30) mg/dL Estimated GFR Greater than 89 (>89) mL/min Random Glucose 85 (74-106) mg/dL Lactic Acid 0.9 (0.4-2.0) mmol/L Calcium 8.2 L (8.5-10.1) mg/dL Magnesium (1.5-2.5) mg/dL Total Bilirubin 0.3 (0.2-1.0) mg/dL AST 100 H (15-37) U/L ALT 193 H (12-78) U/L Alkaline Phosphatase 57 (45-117) U/L C-Reactive Protein (0.00-0.30) mg/dL Total Protein 7.1 (6.4-8.2) g/dL Albumin 3.4 (3.4-5.0) g/dL Lipase (73-393) U/L Urine Color (Yellw/Straw) Urine Clarity (Clear) Urine pH (5.0-8.5) Ur Specific [place] (1.002-1.035) Urine Protein (Neg-Trace) mg/dL Urine Glucose (UA) (Negative) mg/dL Urine Ketones (Negative) mg/dL Urine Occult Blood (Negative) Urine Nitrate (Negative) Urine Bilirubin (Negative) Urine Urobilinogen (Less than 2) mg/dL Ur Leukocyte Esterase (Negative) Urine WBC (0-5) /hpf Ur Squamous Epith Cells (0-5) /hpf Micro UA Comment Urine Culture Comments 03/01/18 Range/Units 09:00 WBC (4.0-11.0) th/mm3 RBC (4.50-5.90) mil/mm3 Hgb (13.0-17.0) gm/dL Hct (39.0-51.0) % MCV (80.0-100.0) fL MCH (27.0-34.0) pg MCHC (32.0-36.0) % RDW (11.6-17.2) % Plt Count (150-450) th/mm3 MPV (7.0-11.0) fL Neut % (Auto) (16.0-70.0) % Lymph % (Auto) (9.0-44.0) % George % (Auto) (0.0-8.0) % Eos % (Auto) (0.0-4.0) % Baso % (Auto) (0.0-2.0) % Neut # (Auto) (1.8-7.7) th/mm3 Lymph # (Auto) (1.0-4.8) th/mm3 George # (Auto) (0.0-0.9) th/mm3 Eos # (Auto) (0.0-0.4) th/mm3 Baso # (Auto) (0.0-0.2) th/mm3 WBC Differential Differential Comment ESR (0-15) mm/hr PT (9.8-11.6) sec INR Ratio APTT (24.3-30.1) sec Sodium (136-145) meq/L Potassium (3.5-5.1) meq/L Chloride (98-107) meq/L Carbon Dioxide (21.0-32.0) meq/L Anion Gap (5-15) meq/L BUN (7-18) mg/dL Creatinine (0.60-1.30) mg/dL Estimated GFR (>89) mL/min Random Glucose (74-106) mg/dL Lactic Acid (0.4-2.0) mmol/L Calcium (8.5-10.1) mg/dL Magnesium (1.5-2.5) mg/dL Total Bilirubin (0.2-1.0) mg/dL AST (15-37) U/L ALT (12-78) U/L Alkaline Phosphatase (45-117) U/L C-Reactive Protein (0.00-0.30) mg/dL Total Protein (6.4-8.2) g/dL Albumin (3.4-5.0) g/dL Lipase (73-393) U/L Urine Color Straw (Yellw/Straw) Urine Clarity Clear (Clear) Urine pH 7.0 (5.0-8.5) Ur Specific [place] 1.004 (1.002-1.035) Urine Protein Negative (Neg-Trace) mg/dL Urine Glucose (UA) Negative (Negative) mg/dL Urine Ketones Negative (Negative) mg/dL Urine Occult Blood Negative (Negative) Urine Nitrate Negative (Negative) Urine Bilirubin Negative (Negative) Urine Urobilinogen Less than 2 (Less than 2) mg/dL Ur Leukocyte Esterase Negative (Negative) Urine WBC 1 (0-5) /hpf Ur Squamous Epith Cells <1 (0-5) /hpf Micro UA Comment Culture not ind Urine Culture Comments Culture not ind Imaging Data Radiologist's impression: Face CT 03/01/18 06:48 CONCLUSION: 1. Findings consistent with left facial cellulitis. No radiopaque foreign bodies or abscess at this time. 2. Mild bilateral maxillary sinus mucosal disease. Chest X-Ray 03/01/18 06:49 CONCLUSION: 1. No acute cardiopulmonary disease. Discharge Plan Discharge Disposition Patient Disposition: 30 Still Patient Discharge Details Diagnosis: Facial cellulitis, IVDU (intravenous drug user) Physicians Team ED Provider: Berenice Mcdermott Primary Care Provider: Primary Care Trinity Fernandez Attending Provider: Andrew Goldman Status ED Status: Left Department Discharge Information Discharge Date/Time: 03/01/18 14:15
[2018-03-01 07:02] LABS: Baso % (Auto) 0.4 % (0.0-2.0); Eos # (Auto) 0.6 th/mm3 (0.0-0.4); Eos % (Auto) 5.7 % (0.0-4.0); Hematocrit 39.2 % (39.0-51.0); Hemoglobin 13.3 gm/dL (13.0-17.0); Lymph # (Auto) 1.8 th/mm3 (1.0-4.8); Lymph % (Auto) 15.5 % (9.0-44.0); Mean Corpuscular HGB Conc 33.8 % (32.0-36.0); Mean Corpuscular Hemoglobin 28.7 pg (27.0-34.0); Mean Corpuscular Volume 84.9 fL (80.0-100.0); Mean Platelet Volume 9.3 fL (7.0-11.0); Mono # (Auto) 0.9 th/mm3 (0.0-0.9); Mono % (Auto) 7.9 % (0.0-8.0); Neut % (Auto) 70.5 % (16.0-70.0); Platelet Count 231 th/mm3 (150-450); Red Blood Count 4.62 mil/mm3 (4.50-5.90); Red Cell Distribution Width 14.1 % (11.6-17.2); White Blood Count 11.4 th/mm3 (4.0-11.0)
[2018-03-01 07:12] LABS: Activated Partial Thrombo Time 27.1 sec (24.3-30.1)
[2018-03-01 07:39] LABS: Alanine Aminotransferase 193 U/L (12-78); Albumin 3.4 g/dL (3.4-5.0); Aspartate Aminotransferase 100 U/L (15-37); Blood Urea Nitrogen 6 mg/dL (7-18); C-Reactive Protein 2.86 mg/dL (0.00-0.30); Calcium 8.2 mg/dL (8.5-10.1); Carbon Dioxide 29.7 meq/L (21.0-32.0); Glomerular Filtration Rate Greater Than 89 mL/min (>89); Glucose,Random 85 mg/dL (74-106); Magnesium 2.2 mg/dL (1.5-2.5)
--- NOTE | 2018-03-01 07:41 | XR ---
EXAM DATE: 03/01/2018 7:37 AM EDT AGE/SEX: 28 years / Male INDICATIONS: Fever. CLINICAL DATA: This is the patient's initial encounter. Patient reports that signs and symptoms have been present for 1 day and indicates a pain score of 0/10. MEDICAL/SURGICAL HISTORY: None. None. COMPARISON: [facility], CT PULMONARY ANGIOGRAM, 08/27/2017. . FINDINGS: A single AP view of the chest demonstrates the lungs to be symmetrically aerated without evidence of mass, infiltrate or effusion. The cardiomediastinal contours are unremarkable. Osseous structures a re intact. CONCLUSION: 1. No acute cardiopulmonary disease. Electronically signed by: Redd Daly MD 03/01/2018 7:39 AM EDT
[2018-03-01 07:43] LABS: Alkaline Phosphatase 57 U/L (45-117); Total Protein 7.1 g/dL (6.4-8.2)
[2018-03-01 08:02] LABS: Sodium 140 meq/L (136-145)
[2018-03-01 08:03] LABS: Anion Gap 5 meq/L (5-15); Chloride 105 meq/L (98-107); Potassium 3.7 meq/L (3.5-5.1)
--- NOTE | 2018-03-01 08:55 | CT ---
EXAM DATE: 03/01/2018 8:44 AM EDT AGE/SEX: 28 years / Male INDICATIONS: Left side facial swelling since Wednesday. CLINICAL DATA: This is the patient's initial encounter. Patient reports that signs and symptoms have been present for 2 days and indicates a pain score of 7/10. MEDICAL/SURGICAL HISTORY: Hepatitis C. IV drug user None. RADIATION DOSE: 59.90 CTDI (mGy) COMPARISON: No prior exams available for comparison. TECHNIQUE: Contiguous images in the axial and coronal planes were obtained using helical multirow de tector technique with 70 ml Omnipaque 350 (iohexol) nonionic water-soluble contrast as a single exam dose. Using automated exposure control and adjustment of the mA and/or kV according to patient size , radiation dose was kept as low as reasonably achievable to obtain optimal diagnostic quality images . DICOM format image data is available electronically for review and comparison. FINDINGS: Orbits: The orbital and infraorbital osseous structures are intact. The retroconal structures have a normal configuration. No radiopaque foreign bodies are seen. Nasal Bone: The nasal bone and maxillary spine are intact. Zygomatic Arches: Symmetric without evidence of fracture. Sinuses: The maxillary, ethmoid, and frontal sinuses are intact. Small right-sided mucous retention cyst with minimal bilateral maxillary mucoperiosteal thickening. No air-fluid levels seen. Nasal Cavity: The nasal septum is intact and midline. The lacrimal ducts are intact. Soft Tissues: Diffuse left facial soft tissue stranding with associated skin thickening. No subcutis emphysema, focal fluid collections or radiopaque foreign bodies. Several small subcentimeter level 2 and 3 lymph nodes. No necrotic nodes. Intracranial: No intracranial air seen. Cribriform Plate: Grossly intact. Post Contrast: No abnormal areas of enhancement. CONCLUSION: 1. Findings consistent with left facial cellulitis. No radiopaque foreign bodies or abscess at this time. 2. Mild bilateral maxillary sinus mucosal disease. Electronically signed by: Redd Daly MD 03/01/2018 8:54 AM EDT
[2018-03-01 09:25] LABS: Bilirubin,Urine Negative (Negative); Clarity,Urine Clear (Clear); Color,Urine Straw (Yellw/Straw); Glucose,Urine (UA) Negative (Negative); Leukocyte Esterase,Urine Negative (Negative); Nitrite,Urine Negative (Negative); Specific Gravity,Urine 1.004 (1.002-1.035); Squamous Epithelial Cell,Urine <1 /hpf (0-5)
[2018-03-01] MEDS ORDERED: Acetaminophen 325 MG Tablet PO PRN (11:21)
[2018-03-01] MEDS: Ketorolac Inj 30 MG/ML (IVP) Vial IV.PUSH PRN ×2 (11:55→18:32)
[2018-03-01] MEDS ORDERED: Clindamycin 300 mg/NS Premix 300 MG/50 ML PIGGYBACK IV.SIG SCH (12:00)
[2018-03-01] MEDS: Sod Chloride 0.9% Inj 1,000 ML IV.CONT SCH ×2 (12:38→21:31)
--- NOTE | 2018-03-01 18:07 | P.HPIM ---
History of Present Illness Primary Care Physician: No Primary Care Physician Chief Complaint: Facial swelling History of Present Illness: The patient is a 28-year-old male past medical history of IV heroin abuse who is presenting to the hospital with swelling of his face and the lower extremities. The patient says that he recently got out of penitentiary a couple of days ago and has been living in a truck with his best friend. He has been spending a lot of time in the [place]. He says that while he was in penitentiary he was able to abstain from using drugs but the second he got out he and his friend started using heroin all the time. He said he mainly injected in both of his arms. He says every once in a while he uses other substances but has not used any other substances lately. He does not drink any alcohol. He says he has been trying to check himself into [facility] ([facility]) but they said he needs to come back the next day because they do not have a bed available. The patient says that last night he noticed swelling in his legs. He then noticed that his face got very swollen. He states that there was a pus-like spot on his left cheek which continue to get bigger. He states that he has something similar to poison rolando on his arms. He has been bitten by ants in the [place] which have also cause some skin lesions. He called for an ambulance last night. He believes the swelling is getting a little bit better. He states he has been addicted to drugs since he was 22. - Diagnosis (1) Facial cellulitis (2) IVDU (intravenous drug user) Review of Systems All other systems reviewed negative except as stated in [facility] - History History Provided By: Patient, Medical Record - Medical History Medical History: Medical History (Last Updated 03/01/18 @ 18:07 by Andrew Padgett DO) Hepatitis C IVDU (intravenous drug user) Septic embolism - Surgical History Surgical History: Surgical History (Last Updated 03/01/18 @ 06:14 by Laya Logan) No history of previous surgery - Family History Family History: Family History (Last Updated 03/01/18 @ 18:10 by Anrdew Padgett DO) Other Patient denies medical problems - Tobacco History Second Hand Smoke Exposure: No Tobacco Use In Past 30 Days: Yes Smoking Status: Current every day smoker Tobacco Type: Cigarettes - Alcohol History How Often Do You Have a Drink Containing Alcohol: Never - Substance Use History Substance History: Active Abuse - Substance Use Type Heroin Status: Active Route Used: Intravenously Frequency: USES MULTIPLE TIMES A DAY Last Used: 02/28/18 Reason for Use: Calm Down - Travel History Recent Travel in the [place] Within the Last 8 Weeks: No Recent Travel Out of the Country Within the Last 8 Weeks: No - Immunization History Tetanus Immunization: Unsure Hx Influenza Vaccine This Season: No Medications and Allergies Active Medications: Active Medications Acetaminophen (Tylenol) 650 mg PO Q4H PRN PRN Reason: Temp > 100.4 Sodium Chloride (Ns Inj) 1,000 mls @ 100 mls/hr IV.CONT .Q10H TYREE Last Admin: 03/01/18 12:38 Dose: 100 mls/hr Clindamycin/Sodium Chloride (Cleocin 600 Mg/Ns Premix) 600 mg in 50 mls @ 100 mls/hr IV.SIG Q8H TYREE Ketorolac Tromethamine (Toradol Inj) 30 mg IV.PUSH Q6H PRN PRN Reason: pain 3-10 Stop: 03/06/18 11:23 Last Admin: 03/01/18 11:55 Dose: 30 mg Lactobacillus Acidophilus (Lactinex Pkt) 1 gm PO TID TYREE Senna/Docusate Sodium (Melody-Colace) 1 tab PO BID [facility] Allergies Allergy/AdvReac Type Severity Reaction Status Date / Time No Known Allergies Allergy Unverified 03/01/18 06:28 Home Medications Medication Instructions Recorded Confirmed Type No Known Home Medications 03/01/18 03/01/18 History Exam Vital signs: Vital Signs 03/01/18 04:31 03/01/18 06:13 03/01/18 07:21 Temperature 98.3 F 98.1 F Pulse Rate 71 62 69 Respiratory Rate 17 18 18 Blood Pressure 149/73 H 130/84 128/73 Pulse Oximetry 100 99 99 03/01/18 11:00 03/01/18 13:20 03/01/18 14:14 Temperature Pulse Rate 54 L 62 Respiratory Rate 18 16 18 Blood Pressure 115/76 123/62 Pulse Oximetry 100 03/01/18 15:41 Temperature 98.6 F Pulse Rate 73 Respiratory Rate 18 Blood Pressure 134/58 L Pulse Oximetry 98 Intake & Output 02/28/18 03/01/18 03/01/18 18:59 06:59 18:59 Intake Total 1300 / 1300 Balance 1300 / 1300 Weight 81.647 kg Intake: IV 1300 / 1300 Cleocin 300 mg/NS Premix 300 mg 50 / 50 In 50 ml @ 100 mls/hr IV.SIG Q8H TYREE Rx#:[id number] Zosyn 3.375 GM Premix 50 ML @ 50 / 50 100 mls/hr IV.SIG ONCE ONE Rx#: [id number] NS Inj 1,000 ML @ Wide Open IV. 1000 / 1000 SIG BOLUS ONE Rx#:[id number] Vancomycin Inj 1 gm In 200 ml @ 200 / 200 200 mls/hr IV.SIG ONCE ONE Rx# :[id number] Other: # Voids 3 # Bowel Movements 0 Narrative: GENERAL: Resting comfortably. SKIN: Left cheek is erythematous and swollen, tender to touch. Lesions noted on the patient's hands, scattered superficial splinters. He is noted to have a few pustules between the toes, vesicle formation along the medial aspect of the left great toe. He has erythema on his right arm. HEENT: NC, AT. LUNGS: CTAB. No W/R/R. CARDIAC: RRR. No murmur appreciated. GI: Nontender, nondistended. EXTREMITIES: 1+ LE edema. NEURO: No gross deficits. Results - Labs CBC & Chem 7: 03/01/18 06:50 03/01/18 06:50 Labs: Short CBC 03/01/18 Range/Units 06:50 WBC 11.4 H (4.0-11.0) th/mm3 Hgb 13.3 (13.0-17.0) gm/dL Hct 39.2 (39.0-51.0) % Plt Count 231 (150-450) th/mm3 BMP 03/01/18 06:50 Sodium 140 Potassium 3.7 Chloride 105 Carbon Dioxide 29.7 BUN 6 L Creatinine 0.71 Calcium 8.2 L Liver Function 03/01/18 Range/Units 06:50 Total Bilirubin 0.3 (0.2-1.0) mg/dL AST 100 H (15-37) U/L ALT 193 H (12-78) U/L Alkaline Phosphatase 57 (45-117) U/L Albumin 3.4 (3.4-5.0) g/dL Urine 03/01/18 Range/Units 09:00 Urine Color Straw (Yellw/Straw) Urine Clarity Clear (Clear) Urine pH 7.0 (5.0-8.5) Ur Specific [place] 1.004 (1.002-1.035) Urine Protein Negative (Neg-Trace) mg/dL Urine Glucose (UA) Negative (Negative) mg/dL - Imaging Impressions Face CT 03/01/18 06:48 CONCLUSION: 1. Findings consistent with left facial cellulitis. No radiopaque foreign bodies or abscess at this time. 2. Mild bilateral maxillary sinus mucosal disease. Chest X-Ray 03/01/18 06:49 CONCLUSION: 1. No acute cardiopulmonary disease. Caprini VTE Risk Assessment Caprini VTE Risk Assessment: Moderate/High Risk (score >= 2) Caprini Risk Assessment Model: Point Value = 1 Point Value = 2 Point Value = 3 Point Value = 5 Age 41-60 Minor surgery BMI > 25 kg/m2 Swollen legs Varicose veins or History of unexplained or recurrent spontaneous Oral contraceptives or hormone replacement Sepsis (< 1 month) Serious lung disease, including pneumonia (< 1 month) Abnormal pulmonary function Acute myocardial infarction Congestive heart failure (< 1 month) History of inflammatory bowel disease Medical patient at bed rest Age 61-74 Arthroscopic surgery Major open surgery (> 45 min) Laparoscopic surgery (> 45 min) Malignancy Confined to bed (> 72 hours) Immobilizing plaster cast Central venous access Age >= 75 History of VTE Family history of VTE Factor V Leiden Prothrombin [id number] Lupus anticoagulant Anticardiolipin antibodies Elevated serum homocysteine Heparin-induced thrombocytopenia Other congenital or acquired thrombophilia Stroke (< 1 month) Elective arthroplasty Hip, pelvis, or leg fracture Acute spinal cord injury (< 1 month) Prophylaxis Regimen: Total Risk Factor Score Risk Level Prophylaxis Regimen 0-1 Low Early ambulation 2 Moderate Order ONE of the following: *Sequential Compression Device (SCD) *Heparin 5000 units SQ BID 3-4 Higher Order ONE of the following medications: *Heparin 5000 units SQ TID *Enoxaparin/Lovenox 40 mg SQ daily (WT < 150 kg, CrCl > 30 mL/min) *Enoxaparin/Lovenox 30 mg SQ daily (WT < 150 kg, CrCl > 10-29 mL/min) *Enoxaparin/Lovenox 30 mg SQ BID (WT < 150 kg, CrCl > 30 mL/min) AND/OR *Sequential Compression Device (SCD) 5 or more Highest Order ONE of the following medications: *Heparin 5000 units SQ TID (Preferred with Epidurals) *Enoxaparin/Lovenox 40 mg SQ daily (WT < 150 kg, CrCl > 30 mL/min) *Enoxaparin/Lovenox 30 mg SQ daily (WT < 150 kg, CrCl > 10-29 mL/min) *Enoxaparin/Lovenox 30 mg SQ BID (WT < 150 kg, CrCl > 30 mL/min) AND *Sequential Compression Device (SCD) Assessment and Plan - Assessment (1) Facial cellulitis Code(s): L03.211 - Cellulitis of face Status: Acute (2) IVDU (intravenous drug user) Code(s): F19.90 - Other psychoactive substance use, unspecified, uncomplicated Status: Acute - Plan Cellulitis The pt has facial cellulitis involving the left side of his face. CT of the face negative for abscess. He also has erythema on his RUE and multiple lesions on his extremities. He has been injecting IV heroin into his arms. He received vancomycin in the ED. -continue IV clindamycin. -follow blood cultures. -IVFs. -Toradol as needed for pain. HCV LFTs are elevated. Had a work-up in August for elevated LFTs. -trend LFTs. -consider repeat imaging. Lower extremity edema May be s/t liver disease. -check a BNP. -keep legs elevated. IV drug abuse The pt has been injecting IV heroin. -cessation instruction. -case management consult. The patient is looking forward to following up with Isaiah Faustin. Nicotine abuse The pt smokes up to a pack daily. -cessation instruction. -nicotine patch. PPx: SCDs Discussed Condition With: Pt, nurse, ED doc H&P: Quality - VTE Documentation of Mechanical Device: Intermittent pneumatic compression stockings Deep Vein Thrombosis/Pulmonary Embolism Present on Admission: No
--- NOTE | 2018-03-01 18:37 | ECG ---
Date Performed: 03/01/2018 Time Performed: 07:46:53 PTAGE: 28 years EKG: Ectopic Atrial Rhythm PROLONGED QT INTERVAL ABNORMAL ECG PREVIOUS TRACING : 03/01/2018 07.45 Compared to prior tracing, an ectopic atrial rhythm has rep laced the sinus bradycardia. DOCTOR: Kody Field Interpretating Date/Time 03/01/2018 18:37:04
[2018-03-01] MEDS: Senna/Docusate Sodium 8.6/50 MG Tablet PO SCH (21:12)
[2018-03-01] MEDS: Clindamycin 600 mg/NS Premix 600 MG/50 ML PIGGYBACK IV.SIG SCH (21:31)
[2018-03-02] MEDS: Ketorolac Inj 30 MG/ML (IVP) Vial IV.PUSH PRN ×4 (00:45→21:49)
[2018-03-02] MEDS: Clindamycin 600 mg/NS Premix 600 MG/50 ML PIGGYBACK IV.SIG SCH ×3 (06:13→21:02)
[2018-03-02 06:28] LABS: Hemoglobin 12.7 gm/dL (13.0-17.0); Mean Corpuscular HGB Conc 34.2 % (32.0-36.0); Mean Corpuscular Hemoglobin 29.5 pg (27.0-34.0); Mean Platelet Volume 9.2 fL (7.0-11.0); Platelet Count 200 th/mm3 (150-450); Red Cell Distribution Width 14.2 % (11.6-17.2); White Blood Count 8.3 th/mm3 (4.0-11.0)
[2018-03-02 07:07] LABS: Alanine Aminotransferase 133 U/L (12-78); Albumin 2.7 g/dL (3.4-5.0); Alkaline Phosphatase 46 U/L (45-117); Anion Gap 5 meq/L (5-15); Aspartate Aminotransferase 56 U/L (15-37); Blood Urea Nitrogen 6 mg/dL (7-18); Carbon Dioxide 29.4 meq/L (21.0-32.0); Chloride 110 meq/L (98-107); Glomerular Filtration Rate Greater Than 89 mL/min (>89); Glucose,Random 104 mg/dL (74-106); Potassium 3.8 meq/L (3.5-5.1); Sodium 144 meq/L (136-145); Total Protein 6.1 g/dL (6.4-8.2)
[2018-03-02] MEDS: Sod Chloride 0.9% Inj 1,000 ML IV.CONT SCH ×2 (08:02→17:30)
[2018-03-02] MEDS: Senna/Docusate Sodium 8.6/50 MG Tablet PO SCH ×2 (08:04→22:27)
[2018-03-02 08:44] LABS: Eosinophils 11 % (0-4); Lymphocytes 14 % (9-44); Monocytes 5 % (0-8)
[2018-03-02 08:45] LABS: Platelet Estimate Normal (Normal); Platelet Morphology Normal (Normal)
--- NOTE | 2018-03-02 14:49 | P.PN ---
Subjective Interval history: Follow up for IV heroin use, poison rolando exposure as well as folliculitis. Patient is currently doing well. No fever or chills. His leg swelling is down. Tolerating diet well. Physical Exam Vital signs: Vital Signs 03/01/18 15:41 03/01/18 20:00 03/02/18 00:00 Temperature 98.6 F 98.0 F 98.7 F Pulse Rate 73 59 L 68 Respiratory Rate 18 16 18 Blood Pressure 134/58 L 127/74 128/81 Pulse Oximetry 98 98 96 03/02/18 04:00 03/02/18 08:00 03/02/18 12:00 Temperature 98.5 F 97.6 F 97.7 F Pulse Rate 106 H 69 81 Respiratory Rate 16 18 18 Blood Pressure 116/66 138/86 124/65 Pulse Oximetry 97 99 99 Intake & Output 03/01/18 03/02/18 03/02/18 18:59 06:59 18:59 Intake Total 1300 / 1300 1100 / 1100 1050 / 1050 Balance 1300 / 1300 1100 / 1100 1050 / 1050 Intake: IV 1300 / 1300 1100 / 1100 1050 / 1050 NS Inj 1,000 ML @ 100 mls/hr IV 1000 / 1000 1000 / 1000 .CONT .Q10H TYREE Rx#:[id number] Cleocin 300 mg/NS Premix 300 mg 50 / 50 In 50 ml @ 100 mls/hr IV.SIG Q8H TYREE Rx#:[id number] Cleocin 600 mg/NS Premix 600 mg 100 / 100 50 / 50 In 50 ml @ 100 mls/hr IV.SIG Q8H TYREE Rx#:[id number] Zosyn 3.375 GM Premix 50 ML @ 50 / 50 100 mls/hr IV.SIG ONCE ONE Rx#: [id number] NS Inj 1,000 ML @ Wide Open IV. 1000 / 1000 SIG BOLUS ONE Rx#:[id number] Vancomycin Inj 1 gm In 200 ml @ 200 / 200 200 mls/hr IV.SIG ONCE ONE Rx# :[id number] Other: # Voids 3 2 # Bowel Movements 0 1 Narrative: GENERAL: Alert, oriented 3, NAD. SKIN: Warm and dry. On the left cheek area there is a folliculitis present no drainage. On the upper right extremity as well as lower right extremity there is significant amount of erythema and confluent macular lesion. HEAD: Normocephalic. EYES: No scleral icterus. No injection or drainage. NECK: Supple, trachea midline. No JVD or lymphadenopathy. CARDIOVASCULAR: Regular rate and rhythm without murmurs, gallops, or rubs. RESPIRATORY: Breath sounds equal bilaterally. No accessory muscle use. GASTROINTESTINAL: Abdomen soft, non-tender, nondistended. MUSCULOSKELETAL: No cyanosis, or edema. BACK: Nontender without obvious deformity. No CVA tenderness. Results - Labs CBC & Chem 7: 03/02/18 05:57 03/02/18 05:57 Laboratory Results - last 24 hr 03/02/18 03/02/18 03/02/18 05:57 05:57 05:57 WBC 8.3 RBC 4.30 L Hgb 12.7 L Hct 37.0 L MCV 86.0 MCH 29.5 MCHC 34.2 RDW 14.2 Plt Count 200 MPV 9.2 Prelim Diff (Auto) Manual diff required WBC Differential Manual diff final Seg Neuts % (Manual) 66 Band Neuts % (Manual) 3 Lymphocytes % (Manual) 14 Monocytes % (Manual) 5 Eosinophils % (Manual) 11 H Basophils % (Manual) 1 Abs Neuts (Manual) 5.7 Differential Comment . Platelet Estimate Normal Platelet Morphology Normal Sodium 144 Potassium 3.8 Chloride 110 H Carbon Dioxide 29.4 Anion Gap 5 BUN 6 L Creatinine 0.61 Estimated GFR Greater than 89 Random Glucose 104 Calcium 8.0 L Total Bilirubin 0.2 AST 56 H ALT 133 H Alkaline Phosphatase 46 B-Natriuretic Peptide 53 Total Protein 6.1 L D Albumin 2.7 L D Microbiology 03/01/18 06:45 Blood - Peripheral Aerobic Blood Culture - Preliminary No growth in 1 day 03/01/18 06:45 Blood - Peripheral Anaerobic Blood Culture - Preliminary No growth in 1 day 03/01/18 06:50 Blood - Peripheral Aerobic Blood Culture - Preliminary No growth in 1 day 03/01/18 06:50 Blood - Peripheral Anaerobic Blood Culture - Preliminary No growth in 1 day Assessment and Plan - Assessment (1) Facial cellulitis Code(s): L03.211 - Cellulitis of face Status: Acute (2) IVDU (intravenous drug user) Code(s): F19.90 - Other psychoactive substance use, unspecified, uncomplicated Status: Acute - Plan Mr. Oneill is a pleasant 28-year-old male with a history of IV heroin use who presented to the hospital on 03/01/2018 due to lower extremity swelling as well as facial swelling and a lesion on his left face. Left sided facial folliculitis IV drug user Poison rolando exposure -Continue clindamycin today. We will switch to clindamycin p.o. tomorrow and possibly discharge home. -We will start high potency topical steroid fluocinonide 0.05% twice daily in the affected area except face. -Patient counseled regarding IV drug abuse. He is motivated to seek help at [facility]. Full code. Ambulation. Discharge: Possible d/c in the AM.
[2018-03-03] MEDS: Sod Chloride 0.9% Inj 1,000 ML IV.CONT SCH (04:46)
[2018-03-03] MEDS: Clindamycin 600 mg/NS Premix 600 MG/50 ML PIGGYBACK IV.SIG SCH (04:46)
[2018-03-03] MEDS: Ketorolac Inj 30 MG/ML (IVP) Vial IV.PUSH PRN (05:17)
[2018-03-03] MEDS: Senna/Docusate Sodium 8.6/50 MG Tablet PO SCH (09:29)
[2018-03-03 09:41] VITALS: BP 124/80; PULSE 64; RESP 18; TEMP 98.7; O2SAT 99
--- NOTE | 2018-03-03 12:40 | P.PN ---
Subjective Interval history: Follow up for IV heroin use, poison rolando exposure as well as folliculitis. Patient is doing well. No fever, chills. Tolerating diet well. Physical Exam Vital signs: Vital Signs 03/02/18 16:00 03/02/18 20:00 03/02/18 23:59 Temperature 98.5 F 98.2 F 98.3 F Pulse Rate 65 61 62 Respiratory Rate 16 16 16 Blood Pressure 130/73 118/69 126/61 Pulse Oximetry 98 98 98 03/03/18 04:00 03/03/18 08:00 Temperature 98.5 F 98.7 F Pulse Rate 65 64 Respiratory Rate 16 18 Blood Pressure 125/69 124/80 Pulse Oximetry 98 99 Intake & Output 03/02/18 03/03/18 03/03/18 18:59 06:59 18:59 Intake Total 2049 1450 / 1450 50 / 50 Balance 2049 1450 / 1450 50 / 50 Intake: IV 2049 1050 / 1050 50 / 50 NS Inj 1,000 ML @ 100 mls/hr IV 1999 / 1999 1000 / 1000 .CONT .Q10H TYREE Rx#:[id number] Cleocin 600 mg/NS Premix 600 mg 50 / 50 50 / 50 50 / 50 In 50 ml @ 100 mls/hr IV.SIG Q8H TYREE Rx#:[id number] Oral 400 / 400 Other: # Voids 4 1 Date of Last Bowel Movement 03/03/18 # Bowel Movements 1 Narrative: GENERAL: Alert, oriented 3, NAD. SKIN: Warm and dry. On the left cheek area there is a folliculitis present no drainage. On the upper right extremity as well as lower right extremity there is significant amount of erythema and confluent macular lesion. HEAD: Normocephalic. EYES: No scleral icterus. No injection or drainage. NECK: Supple, trachea midline. No JVD or lymphadenopathy. CARDIOVASCULAR: Regular rate and rhythm without murmurs, gallops, or rubs. RESPIRATORY: Breath sounds equal bilaterally. No accessory muscle use. GASTROINTESTINAL: Abdomen soft, non-tender, nondistended. MUSCULOSKELETAL: No cyanosis, or edema. BACK: Nontender without obvious deformity. No CVA tenderness. Results - Labs CBC & Chem 7: 03/02/18 05:57 03/02/18 05:57 Microbiology 03/01/18 06:45 Blood - Peripheral Aerobic Blood Culture - Preliminary No growth in 2 days 03/01/18 06:45 Blood - Peripheral Anaerobic Blood Culture - Preliminary No growth in 2 days 03/01/18 06:50 Blood - Peripheral Aerobic Blood Culture - Preliminary No growth in 2 days 03/01/18 06:50 Blood - Peripheral Anaerobic Blood Culture - Preliminary No growth in 2 days Assessment and Plan - Assessment (1) Facial cellulitis Code(s): L03.211 - Cellulitis of face Status: Acute (2) IVDU (intravenous drug user) Code(s): F19.90 - Other psychoactive substance use, unspecified, uncomplicated Status: Acute - Plan Mr. Oneill is a pleasant 28-year-old male with a history of IV heroin use who presented to the hospital on 03/01/2018 due to lower extremity swelling as well as facial swelling and a lesion on his left face. Left sided facial folliculitis IV drug user Poison rolando exposure -Continue clindamycin today. We will switch to clindamycin p.o. and discharge home. Also, use topical mupirocin. -He received topical steroid. We will give tapering dose of oral steroid due to diffuse skin rash. -Case management provided medications free of charge. -Patient counseled regarding IV drug abuse. He is motivated to seek help at [facility]. Full code. Ambulation. Discussed with patient's mom who lives in [place]. She indicated that due to patient's IV drug use history, her will not allow patient to live at their house in [place]. Discharge patient to home Condition on discharge: Improved Regular Diet as tolerated Ad Teresa activity Rx written: Clindamycin clindamycin 300 mg p.o. 3 times daily #30 Lactobacillus 1 g p.o. 3 times daily #60 Mupirocin 2% ointment apply to the affected skin twice daily. Prednisone 10 mg tapering dose schedule #50 Follow-up with primary care physician within 1 week.
== END 2018-03-03 12:21 | disposition home or self-care (01) ==
LOC: NEPGCP 04:26 → NEPE 04:26 → NEDA 04:26 → NEPGCP 14:10
PROVIDERS: ADMIT Hospitalist; ATTEND Hospitalist